=== PATIENT | male | born 1980 | race Caucasian/White ===

== ENCOUNTER 2025-02-05 20:33 | Observation (INO) | payer BC, SELFPAY ==
--- OUTSIDE RECORDS SUMMARY | 2013-08-11 16:02 | XMS_ITS | Continuity of Care Document ---
Author Organization [facility] Address [address] [place] [address] Phone Care Team Providers Care Director Of Group Counseling Program Name Role Phone Wilfredo Rockwell MD Unavailable Unavailable Medications Medication Instructions Dosage Effective Dates (start - stop) Status Comments omeprazole 20 mg tablet,delayed release 1 tablet by mouth 1 hour before a meal once daily - Active diphenhydramine 25 mg tablet take 1 - 2 Tablet by oral route every 4 - 6 hours as needed 25 MG - Active triamcinolone acetonide 55 mcg nasal spray aerosol spray 2 spray by intranasal route every day in each nostril - Active Advance Directives Directive Yes / No Effective Date File Name No Information Encounters Encounter Description Practice Location Reason(s) For Visit Diagnoses Date Provider Providers Copied on Encounter [facility], [address], [place], [place], [id number] , tel: [phone] [facility] No Information 4 Moiz Villalobos. [address] [place] [address], [id number] , [place]. tel: [phone] [facility], [address], [place], [place], [id number] , [place] tel: [phone] [facility] Other specified urticariaGERDChroni c rhinitis 4 Moiz Villalobos. [address] [place] [address], [id number] , . tel: [phone] Referring Provider: Namrata Phillips, [address] [place], [address] . tel:[phone] Family History Family Member Type Diagnosis Age At Onset Sister Problem (finding) Allergies Payers Payer name Insurance type Covered green party ID Authoriza ticasi(s) [facility] OPEN ACCESS I II III CI [id number] Social History Type Description Quantity Date Captured Comments Sex Male Smoking Status No Information Chief Complaint And Reason For Visit No Information Reason For Referral Reason For Referral No Information History Of Present Illness Encounter Date Complaint History Of Prese nt Illness No Information Functional Status Date Functional Assessmen t No Information Instructions Date Instruction Additional Infor mation No Information Assessments Type Assessment Date No Information Patient Care Teams Name Effective Dates (start - stop) Status Members No Information
[2025-02-05] VITALS (7 sets, daily range): BP systolic 123–139; BP diastolic 84–94; PULSE 63–79; RESP 12–20; TEMP 36.5–36.7; O2SAT 98–100
--- NOTE | ~2025-02-05 | CT_ITS ---
CTA CHEST CLINICAL HISTORY: Chest pain with inspiration . COMPARISON: Chest x-ray one day prior TECHNIQUE: Helical CTA performed from thoracic inlet to upper abdomen IV contrast information not in PACS Coronal, sagittal reformats. Multiplanar MIPS CT images acquired with automatic exposure control for dose reduction DLP: 466 mGy-cm FINDINGS: Mild respiratory motion artifact. Pulmonary arteries: No PE identified. Thoracic Aorta: No dissection or aneurysm. Heart/pericardium: Upper limit of normal in size. Coronary artery calcifications. RV/LV ratio: Normal. Lungs/Pleura: Clear. Tracheobronchial tree: Patent. Nodes: No enlarged nodes. Right hilar calcifications. Bones: No acute bony abnormality. Soft tissues: Unremarkable. Visualized upper abdomen: Hepatomegaly, with steatosis. IMPRESSION: 1. No PE or other acute cardiopulmonary findings. Reviewed, dictated and finalized at location R.
--- NOTE | ~2025-02-05 | CT_ITS ---
EXAMINATION: CT brain wo con DATE: 02/07/2025 15:09 INDICATION: Vision changes TECHNIQUE: Computed tomography (CT) of the head was performed without intravenous contrast. Sagittal and coronal reconstructions were performed. The mA was adjusted according to patient size. Iterative reconstruction technique was employed. The dose-length product was 605.33 mGy-cm. COMPARISON: None FINDINGS: No acute intracranial hemorrhage, acute infarction or abnormal extra axial fluid collection. Ventricles are normal and symmetric. No mass/mass effect. Because retention cyst in the left maxillary sinus and mild mucosal thickening the left sphenoid and posterior left ethmoid sinus. The orbits and mastoid air cells are normal. IMPRESSION: 1. Normal brain. No acute intracranial process. Reviewed, dictated and finalized at location A.
--- NOTE | ~2025-02-05 | CT_ITS ---
EXAMINATION: CTA BRAIN/CAROTID DATE: 02/07/2025 15:12 INDICATION: Vision changes TECHNIQUE: Computed tomographic angiography (CTA) of the head and neck was performed with 100 mL Omnipaque-350 intravenous contrast. Multiplanar reconstructions and maximum intensity projection 3D-reconstructions of the carotid arteries and of the intracranial arteries were created by the technologist on a separate workstation. Automated exposure control and iterative reconstruction technique were employed.The dose-length product was 1184.06 mGy-cm. COMPARISON: Head CT dated 02/07/2025 FINDINGS: Intracranial arteries Right vertebral artery is dominant. There is no hemodynamically significant stenosis in the vertebral, basilar and internal carotid arteries. Both A1 and P1 segments are patent. There are also patent tiny bilateral posterior communicating arteries. There are no aneurysms identified. Cerebral arterial arborization appears symmetric. No abnormally enhancing brain lesions. Carotid arteries: The aortic arch and the great vessels arising from the arch are normal in caliber with no dissection or hemodynamically significant stenosis. There is no evident atherosclerotic plaque with 0% stenosis of the right and left carotid bulbs relative to normal distal artery lumen diameter (NASCET criteria). Visualized upper lungs are clear. Cervical soft tissues are unremarkable. Mild cervical spondylosis. IMPRESSION: 1. No evident atherosclerotic plaque with 0% stenosis of the right and left carotid bulbs relative to normal distal artery lumen diameter (NASCET criteria). 2. Unremarkable cerebral CT angiogram with no evident thrombosis, hemodynamically significant stenosis or aneurysm. Reviewed, dictated and finalized at location A. IMPRESSION: 1. No evident atherosclerotic plaque with 0% stenosis of the right and left car otid bulbs relative to normal distal artery lumen diameter (NASCET criteria). 2. Unremarkable cerebral CT angiogram with no evident thrombosis, hemodynamical ly significant stenosis or aneurysm.
--- NOTE | ~2025-02-05 | XR_ITS ---
Examination: XR chest 2V Clinical History: chest pain Comparison: None Technique: PA and Lateral Findings: Cardiomediastinal silhouette normal size and configuration. Lungs clear. No acute bony abnormality. IMPRESSION: 1. No acute cardiopulmonary findings. Reviewed, dictated and finalized at location R.
--- NOTE | ~2025-02-05 | MR_ITS ---
EXAMINATION: MR brain/brain stem wo con DATE: 02/08/2025 10:06 INDICATION: Stroke. TECHNIQUE: Magnetic resonance imaging (MRI) of the brain and brainstem was performed without intravenous contrast. COMPARISON: Head CT 02/07/2025 FINDINGS: There is no intracranial hemorrhage, acute infarction, or abnormal intracranial mass lesion. The ventricles are normal in size. There is mild mucosal thickening in the paranasal sinuses. The orbits are normal. There is a trace left mastoid effusion. IMPRESSION: 1. Normal brain. Reviewed, dictated and finalized at location E. IMPRESSION: 1. Normal brain.
--- NOTE | ~2025-02-05 | NM_ITS ---
EXAMINATION: NM daryn stress w perfusion DATE: 02/07/2025 10:13 INDICATION: Recent angioplasty and recurrent chest pain TECHNIQUE: Rest images were obtained following intravenous administration of 10.7 mCi Tc99m tetrofosmin (Myoview). The patient was infused intravenously with Lexiscan (Regadenoson). Then, 35.0 mCi Tc99m tetrofosmin (Myoview) was administered intravenously, and stress images were obtained initially in the supine position with repeat post stress imaging obtained in the prone position. Data was reconstructed into short axis and horizontal and vertical long axis SPECT images. Gated SPECT images were also obtained. COMPARISON: None. FINDINGS: There is a small region of mild decreased activity at the apical lateral segment on the non gated stress imaging which is not appreciated on the gated post stress imaging. The perfusion defect appears to shift in position when comparing the post stress imaging obtained in the supine and prone position which favors artifact. There is no definite reversible or fixed perfusion abnormality to suggest ischemia or infarction. There is normal left ventricular chamber size, wall motion and ejection fraction. There is borderline decreased left ventricular ejection fraction measuring 46%. IMPRESSION: 1. Small focus of mild decreased activity at the apical lateral segment on the non gated post stress imaging which changes slightly in position on the post stress imaging obtained in the prone position and which appears to normalize on the gated post stress imaging which would favor artifact over ischemia. No other definitive myocardial perfusion defects at rest and during stress to suggest ischemia or infarct.. 2. Borderline left ventricular ejection fraction measuring 46%. Reviewed, dictated and finalized at location A. IMPRESSION: 1. Small focus of mild decreased activity at the apical lateral segment on the non gated post stress imaging which changes slightly in position on the post st ress imaging obtained in the prone position and which appears to normalize on t he gated post stress imaging which would favor artifact over ischemia. No other definitive myocardial perfusion defects at rest and during stress to suggest i schemia or infarct.. 2. Borderline left ventricular ejection fraction measuring 46%.
--- NOTE | 2025-02-05 20:37 | ECG_ITS ---
Test Date: 2025-02-05 20:42:38 Measurements Intervals [place] Rate: 76 P: 23 MT: 173 QRS: -38 QRSD: 105 T: 28 QT: 371 QTc: 419 Interpretive Statements SINUS RHYTHM LEFT AXIS DEVIATION INCOMPLETE RIGHT BUNDLE BRANCH BLOCK VOLTAGE CRITERIA FOR LVH CANNOT R/O SEPTAL INFARCT, AGE INDETERMINATE BASELINE ARTIFACT- I, II, III, AVR, AVL, AVF ABNORMAL ECG No previous ECG available for comparison Electronically Signed On 02-06-2025 08:15:14 CDT by Sandeep Liang D.O.
[2025-02-05 20:56] LABS: Hematocrit 41.4 % (42.0-52.0); Hemoglobin 14.1 g/dL (14.0-18.0); Immature Granulocyte Percent A 0.5 % (0-0.5); Lymphocytes Absolute Auto 1.88 K/mm3 (0.9-3.2); Mean Corpuscular HGB Conc 34.1 g/dl (32-36); Mean Corpuscular Hemoglobin 28.6 pg (26-34); Mean Corpuscular Volume 84.0 fl (80-100); Nucleated Red Blood Cells Absolute Auto 0.000 K/mm3 (0.0-0.012); Nucleated Red Blood Cells Perc 0.0 % (0.0-0.2); Platelet Count Result 386 k/mm3 (150-375); Red Blood Count 4.93 M/mm3 (4.6-6.20); White Blood Count 6.3 K/mm3 (4.5-10.0)
[2025-02-05 21:08] LABS: INR 1.1; Prothrombin Time 14.3 Seconds (11.1-14.7)
[2025-02-05 21:09] LABS: Partial Thromboplastin Time 27.2 Seconds (22.3-36.8)
[2025-02-05 21:12] LABS: Alanine Aminotransferase 43 U/L (6-50); Albumin Level 4.1 g/dL (3.5-5.1); Alkaline Phosphatase 63 U/L (38-126); Anion Gap 4 mmol/L (4-12); Aspartate Amino Transferase 31 U/L (17-59); Bilirubin,Total 0.4 mg/dL (0.2-1.3); Blood Urea Nitrogen 14 mg/dL (9-20); Calcium 9.0 mg/dL (8.4-10.2); Carbon Dioxide 30 mmol/L (22-30); Chloride 101 mmol/L (98-107); Estimated CRCL calculation 96 ml/min; Estimated Glomerular Filt Rate > 60; Glucose 109 mg/dL (65-110); Lipase 161 U/L (23-300); Potassium 4.0 mmol/L (3.4-5.0); Sodium 135 mmol/L (137-145); Total Protein 6.9 g/dL (6.3-8.2)
[2025-02-05 21:22] LABS: Troponin I 0.121 ng/mL (0.000-0.034)
--- NOTE | 2025-02-05 21:22 | PC.NURSE ---
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
--- OUTSIDE RECORDS SUMMARY | 2025-02-05 21:33 | XMS_ITS | Encounter Summary ---
Author Organization [facility] Address [address] [place] [address] Care Team Providers Care Online Advertising Manager Name Role Phone Kt Sandy MD Primary Care Provider [phone] Monica Quinones MD Unavailable [phone] Encounter Details Date Type Department Care Team (Late st Contact Info) Description 01/24/2025 Hospital Encounter [facility] ADMIT [address] [place] [address] Social History Tobacco Use Types Packs/Day Years Used Date Smoking Tobacco: Former Cigarettes Q uit: 2008 Smokeless Tobacco: Former Comments:currently chew rich chente gum Alcohol Use Standard Drinks/Week Comments Yes 0 (1 standard drink = 0.6 oz pur e alcohol) 2x/week AUDIT-C Answer Date Recorded Q1: How often do you have a drink containing alc ohol? 2-4 times a month 11/24/2024 Q2: How many drinks containi ng alcohol do you have on a typical day when you are drinking? 1 or 2 11/24/2024 Q3: How often do you have si x or more drinks on one occasion? Less than monthly 11/24/2024 Social Connection and Isolation Panel Answer Date Recorded In a typical week, how many times do you talk on the phone with family, friends, or neighbors? More than three times a week 01/26/2025 How often do you get togethe r with friends or relatives? More than three times a week 01/26/2025 How often do you attend chur or religion services? Never 01/26/2025 Do you belong to any clubs o r organizations such as taoism groups, unions, fraternal or athletic groups, or school groups? No 01/26/2025 How often do you attend meet ings of the clubs or organizations you belong to? Never 01/26/2025 Are you , , di vorced, , never , or living with a partner? 01/26/2025 Overall Financial Resource Strain (CARDIA) Answe r Date Recorded How hard is it for you to pa y for the very basics like food, housing, medical care, and heating? Not hard at all 01/26/2025 Hunger Vital Sign Answer Date Recorded Within the past 12 months, y ou worried that your food would run out before you got the money to buy more. Never true 01/27/20 25 Within the past 12 months, t he food you bought just didn't last and you didn't have money to get more. Never true 01/26/2025 PRAPARE - Transportation Answer Date Re corded In the past 12 months, has l ack of transportation kept you from medical appointments or from getting medications? No 01/04 In the past 12 months, has l ack of transportation kept you from meetings, work, or from getting things needed for daily living? No 01/26/2025 Housing Stability Vital Sign Answer Bruce e Recorded In the last 12 months, was t here a time when you were not able to pay the mortgage or rent on time? No 01/26/2025 In the past 12 months, how m any times have you moved where you were living? 0 01/26/2025 At any time in the past 12 m [facility], were you homeless or living in a intermediate (including now)? No 01/26/2025 [facility] Utilities Answer Date Recorded In the past 12 months has th e electric, gas, oil, or water company threatened to shut off services in your home? No 01/26/2025 Personal Safety Answer Date Recorded Have you ever been in or are you currently in a harmful physical or emotional relationship or is someone making you feel afraid or unsafe? 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
--- OUTSIDE RECORDS SUMMARY | 2025-02-05 21:33 | XMS_ITS | Clinical Summary ---
Author Organization [facility] Address [address] [place] [address] Care Team Providers Care Sweatband Perforator Name Role Phone Unavailable Primary Care Provider Unavailabl e Social History Tobacco Use Types Packs/Day Years Used Date Smoking Tobacco: Never Assessed Sex and Gender Information Value Date Recorded Sex Assigned at Not on file Legal Sex Male 9:18 PM CDT Gender Identity Not on file Sexual Orientation Not on file Plan of Treatment Not on file
--- OUTSIDE RECORDS SUMMARY | 2025-02-05 21:33 | XMS_ITS | Clinical Summary ---
Author Organization [facility] Address [facility] [place] [address] Care Team Providers Care Lead Android Developer Name Role Phone Kt Sandy MD Primary Care Provider [phone] Gerardo Verma MD Unavailable Unavailabl e Allergies Active Allergy Reactions Criticality Noted Date Comments Prednisone Hives,Other (see comment) 02/03/2014 A fib Vancomycin Itching 09/11/2016 Medications vitamin D3 (CHOLECALCIFERO L) 25 mcg tablet Take 1 tablet (1,000 Units total) by mouth. Active vitamin C (ASCORBIC ACID) 1000 MG tablet Take 1 tablet (1,000 mg total) by mouth. Active B Complex Vitamins (VITAMIN B COMPLEX OR) Take 1 tablet by mouth. Active Zinc 22.5 MG Tab Active magnesium oxide (MAG-OX) 400 (240 Mg) MG tablet Take 1 tablet (400 mg total) by mouth daily. 90 tablet 3 07/30/2023 Active famotidine (PEPCID) 20 MG tablet Take 1 tablet (20 mg total) by mouth as needed for Heartburn. Active pantoprazole EC (PROTONIX) 20 MG tablet Take 2 tablets (40 mg total) by mouth daily. 08/25/2023 Active Active Problems Problem Noted Date Diagnosed Date Palpitation 07/30/2023 Family History Relation Status Comments Father Alive Maternal Grandfather Maternal Grandmother Mother Paternal Grandfather Paternal Grandmother Sister Alive Social History Tobacco Use Types Packs/Day Years Used Date Smoking Tobacco: Former Cigarettes Q uit: 2004 Smokeless Tobacco: Never Tobacco Cessation:Counseling Given: Not Answered Alcohol Use Standard Drinks/Week Comments Yes 0 (1 standard drink = 0.6 oz pur e alcohol) 6-10 every other weekend Sex and Gender Information Value Date Recorded Sex Assigned at Male 07/14/2024 2:28 PM CDT Legal Sex Male 11:16 PM CDT Gender Identity Not on file Sexual Orientation Not on file Last Filed Vital Signs Vital Sign Reading Time Taken Comments Blood Pressure 131/87 08/26/2024 3:37 PM CDT Pulse 85 08/26/2024 3:37 PM CDT Temperature - - Respiratory Rate 18 08/26/2024 3:37 PM CDT Oxygen Saturation 96% 08/26/2024 3:37 PM CDT Inhaled Oxygen Concentration - - Weight 99.7 kg (219 lb 12.8 oz) 08/26/2024 3:37 PM CDT Height 177.8 cm (5' 10) 08/26/2024 3:37 PM CDT Body Mass Index 31.54 08/26/2024 3:37 PM CDT Plan of Treatment Health Maintenance Due Date Last Done Comments Colorectal Cancer Screening Colonoscopy (10 Years) 1978 Annual Physical 1981 Hepatitis C 1996 Hepatitis B Vaccines (1 of 3 - 19+ 3-dose series) 1997 COVID-19 Vaccine (2023-2 5 season) 2025 Influenza Adult (#1) 2025 DTaP, Tdap and Td Vaccines ( 2 - Td or Tdap) 01/30/2032 01/29/2022 Meningococcal B Vaccine Aged Out No l onger eligible based on patient's age to complete this topic Meningococcal Vaccine Aged Out No carolyn swati eligible based on patient's age to complete this topic Pneumococcal Vaccine: Pediat rics (0 to 5 Years) and At-Risk Patients (6 to 49 Years) Aged Out No longer eligi ble based on patient's age to complete this topic RSV Immunizations Under 20 Months Aged Out No longer eligible based on patient's age to complete this topic Insurance [facility] Care Teams Lead Android Developer Relationship Specialty Start Date End Date Kt Sandy MD [address] [place] [address] PCP - General FAMILY PRACTICE 07/10/23 Gerardo Verma MD [facility] [place] [address] [place] Stagecraft Professor CARDIOVASCULAR DISEASE 07/10/23
--- OUTSIDE RECORDS SUMMARY | 2025-02-05 21:34 | XMS_ITS | Clinical Summary ---
Author Organization [facility] Address [address] [place] [address] Care Team Providers Care Warehouse Man Name Role Phone Namrata Phillips DO Unavailable [phone] Kt Sandy MD Primary Care Provider [phone] Source Comments [facility],non-owned Affiliates and Associated Physician Practices is amultiple site organization consisting of ambulatory clinics and hospital sitesin [place], [place], [place]. This disclosure is being madepursuant to the Care Everywhere program and may not contain all information available regarding this patient. Last updated 18.[facility] Allergies Active Allergy Reactions Criticality Noted Date Comments Nitroglycerin Other High 01/24/2025 Hypotension, Diaphoretic Prednisone Other 02/03/2014 A fib Vancomycin Itching 09/11/2016 Medications * Be aware that medications may not be up to date on this document. Alwaysverify current medications with the patient. pantoprazole EC (Protonix) 40 MG tablet Take 1 (one) tablet by mouth once daily Active morphine 4 MG/ML injectionIndica tions:Refractor y angina pectoris 0.5 mL by Intravenous route every 2 hours as needed 5 Active aspirin (Aspirin) 81 MG chew tablet Take 1 (one) tablet by mouth once daily (chew and swallow) 5 Active isosorbide mononitrate CR 24hr (Imdur) 60 MG tablet Take 1 (one) tablet by mouth once daily 5 Active Nitroglycerin in D5W (nitroGLYCERIN 50 mg in 250 mL) 200-5 MCG/ML-% infusion 0-100 mcg/min by Intravenous route continuous 5 Active ALPRAZolam (Xanax) 0.5 MG tablet Take 1 (one) tablet by mouth 3 times daily 5 Active Heparin, Porcine, in NaCl (heparin 25,000 units in 250 mL, 100 units/mL, in 0.45% NaCl) infusion 0-3,960 Units/hr by Intravenous route continuous 5 Active ondansetron (Zofran) 2 MG/ML injection 4 (four) mg by Intravenous route every 4 hours as needed for Nausea/Vomiting 5 Active atorvastatin (Lipitor) 80 MG tablet Take 1 (one) tablet by mouth at bedtime 5 Active metoprolol succinate XL 24hr (Toprol XL) 25 MG tablet Take 1 (one) tablet by mouth once daily 5 Active amLODIPine (Norvasc) 5 MG tablet Take 1 (one) tablet by mouth once daily 5 Active prasugrel (Effient) 10 MG tablet Take 1 (one) tablet by mouth once daily 5 Active vitamin C (Ascorbic Acid) 1000 MG tablet Take 1 (one) tablet by mouth once daily 025 Discontin ued(List Clean-Up) vitamin D3 (Cholecalcifero l) 25 MCG (1000 UNITS) tablet Take 1 (one) tablet by mouth once daily 025 Discontin ued(List Clean-Up) B Complex Vitamins (vitamin B complex) tablet Take 1 (one) tablet by mouth once daily 025 Discontin ued(List Clean-Up) cetirizine (ZyrTEC ALLERGY) 10 MG tablet Take 1 (one) tablet by mouth at bedtime 4 025 Discontin ued(List Clean-Up) calcium carbonate (Tums) 500 MG chew tablet Take 2 (two) tablets by mouth every 2 hours as needed for Heartburn 025 Discontin ued(List Clean-Up) zinc sulfate (Zincate) 220 (50 ZN) MG capsule Take 1 (one) capsule by mouth once daily 025 Discontin ued(List Clean-Up) budesonide (Pulmicort) 0.5 MG/2ML nebulizer suspension Take 4 mL by mouth once daily as needed Mix with 10 packets of splenda and drink 025 Discontin ued(List Clean-Up) magnesium 30 MG tablet Take 4 (four) tablets by mouth at bedtime 025 Discontin ued(List Clean-Up) diazePAM (Valium) 5 MG tablet Take 1 (one) tablet by mouth 3 times daily as needed for Spasms 9 tablet 5 025 Discontin ued(List Clean-Up) nystatin (Mycostatin) 358908 UNIT/ML suspensionIndic ations:Thrush, oral Take 5 mL by mouth [address] one-half of the dose in each side of mouth and retain in mouth as long as possible before swallowing. Continue treatment for at least 48 hours after perioral symptoms disappear and cultures demonstrate eradication 473 mL 5 025 Discontin ued(List Clean-Up) Pseudoeph-Doxyl slxse-QB-YTHL (NYQUIL PO) Take 20 mL by mouth nightly as needed 025 Discontin ued(Clini susan Decision) prasugrel (Effient) 10 MG tablet Take 1 (one) tablet by mouth once daily 30 tablet 5 025 Discontin ued(Clini susan Decision) Active Problems Problem Noted Date Diagnosed Date NSTEMI (non-ST elevated myocardial infarction) 0 01/20/2025 Cellulitis of right upper extremity 09/11/2016 Chest pain 07/01/2013 Sinusitis, acute 05/06/2013 Encounters Date Type Department Care Team Description 01/23/2025 11:45 AM CDT - 01/23/2025 1:00 PM CDT 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[address] [place] [address] Libertad Nails MD Left Heart Cath 01/21/2025 2:25 PM CDT - 01/25/2025 5:55 PM CDT Hospital Encounter [facility] [address] [place] [address] Kathy Duran MD Wolde, Hailemariam, DO Gonzalez, Darsham Y, MD Family Medicine Discharge Disposition: Inpatient Hospital 01/20/2025 5:58 PM CDT - 01/21/2025 1:41 PM CDT Emergency ER at [facility] [address] [place] [address] Lucy English MD Fox, Faron, MD NSTEMI (non-ST elevated myocardial infarction) (HCC) (Primary Dx); Other chest pain; Hypertension, unspecified type Discharge Disposition: Inpatient Hospital 01/20/2025 Travel 12/27/2024 3:15 PM CDT Office Visit [facility] [address] [place] [phone] Thrush, oral (Primary Dx) 12/27/2024 Travel from Last 3 Months Family History Medical History Relation Name Comments Cancer - Prostate Father Heart Disease Maternal Grandfather Hypertension Maternal Grandfather Diabetes Paternal Grandfather Heart Disease Paternal Grandfather Hypertension Paternal Grandfather Stroke Paternal Grandfather Relation Name Status Comments Father Maternal Grandfather Paternal Grandfather Social History Tobacco Use Types Packs/Day Years Used Date Smoking Tobacco: Former Smokeless Tobacco: Former Chew Quit: 09/12/2013 Tobacco Cessation:Ready to Q uit: Yes; Counseling Given: Yes Alcohol Use Standard Drinks/Week Comments Yes 3.3 (1 standard drink = 0.6 oz p ure alcohol) occasionally, beer or liquor AUDIT-C Answer Date Recorded Q1: How often do you have a drink containing alcohol? Never 01/21/2025 Q2: How many drinks containi ng alcohol do you have on a typical day when you are drinking? Patient does not drink Q3: How often do you have si x or more drinks on one occasion? Never 01/21/2025 Overall Financial Resource Strain (CARDIA) Answe r Date Recorded How hard is it for you to pa y for the very basics like food, housing, medical care, and heating? Not hard at all 01/21/2025 PHQ-2 Answer Date Recorded Patient Health Questionnaire-2 Score 0 12/27/2024 [facility] [place] [facility] - Occupational Stress Questionnaire Answer Date Recorded Do you feel stress - tense, restless, nervous, or anxious, or unable to sleep at night because your mind is troubled all the time - these days? Not at all 01/21/2025 Hunger Vital Sign Answer Date Recorded Within the past 12 months, y ou worried that your food would run out before you got the money to buy more. Never true 01/22/20 25 Within the past 12 months, t he food you bought just didn't last and you didn't have money to get more. Never true 01/21/2025 PRAPARE - Transportation Answer Date Re corded In the past 12 months, has l ack of transportation kept you from medical appointments or from getting medications? No 01/03 In the past 12 months, has l ack of transportation kept you from meetings, work, or from getting things needed for daily living? No 01/21/2025 Housing Stability Vital Sign Answer Bruce e Recorded In the last 12 months, was t here a time when you were not able to pay the mortgage or rent on time? No 01/21/2025 In the past 12 months, how m any times have you moved where you were living? 0 01/21/2025 At any time in the past 12 m [facility], were you homeless or living in a retirement (including now)? 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 Gender Identity Not on file Sexual Orientation Not on file Last Filed Vital Signs Vital Sign Reading Time Taken Comments Blood Pressure 124/66 01/25/2025 11:27 AM CDT Pulse 91 01/25/2025 11:27 AM CDT Temperature 37.3 C (99.1 F) 01/25/2025 11:27 AM CDT Respiratory Rate 20 01/25/2025 11:27 AM CDT Oxygen Saturation 95% 01/25/2025 11:27 AM CDT Inhaled Oxygen Concentration - - Weight 99 kg (218 lb 4.1 oz) 01/25/2025 3:00 AM CDT Height 177.8 cm (5' 10) 01/24/2025 4:00 PM CDT Body Mass Index 31.32 01/24/2025 4:00 PM CDT Plan of Treatment Health Maintenance Due Date Last Done Comments COLOGUARD (AGES 45-75) - COLON CA SCREENING 1978 COLON MONITORING 1978 COLONOSCOPY - COLON CA SCREENING 1978 CT COLONOGRAPHY - COLON CA SCREENING 1978 Colorectal Cancer Screening 1978 FIT - COLON CA SCREENING 1978 FLEX SIG - COLON CA SCREENING 1978 HIV SCREENING 1993 HEPATITIS C SCREENING 06/01/1996 DTAP/TDAP/TD VACCINES (1 - Tdap) 1997 HEPATITIS B VACCINE (1 of 3 - 19+ 3-dose series) 1997 COVID-19 VACCINE (1 - season) 2025 INFLUENZA VACCINE (#1) 2025 SCREENING FOR DIABETES 01/26/2028 , 01/24/2025, 01/23/2025, Additional history exists ZOSTER VACCINE (1 of 2) 2028 DEPRESSION SCREENING Completed 12/27/2024 HIB VACCINE Aged Out No longer eligi ble based on patient's age to complete this topic HPV VACCINE Aged Out No longer eligi ble based on patient's age to complete this topic MENINGOCOCCAL (Group B) VACCINE SHARED DECISION-MAKING Aged Out No longer eligible based on patient's age to complete this topic MENINGOCOCCAL GROUPS A/C/Y/W VACCINE Aged Out No longer eligible based on patient's age to complete this topic PNEUMOCOCCAL VACCINE Aged Out No long er eligible based on patient's age to complete this topic Medical Devices Implanted Type Area Bricklayer Tender Device Identifier Shelf Expiration Date Model / Serial / Lot Sys Cor Stent Xienceskpt 3.50mm 23mm Rap Implanted:Qty: 1 on 01/23/2025 by Jaun Lafleur MD at [facility] [id number] / [id number] / [id number] Description:LAD Procedures Procedure Name Priority Date/Time Associated Diagnosis Comments CARDIAC RHYTHM STRIP ORDER 01/27/2025 1:05 PM CDT PTT Routine 01/25/2025 3:35 PM CDT RESPIRATORY PANEL WITH SARS-COV-2 BY PCR STAT 01/25/2025 1:26 PM CDT TROPONIN-I HIGH SENSITIVE Timed 01/25/2025 11:25 AM CDT EKG 12-LEAD STAT 01/25/2025 7:20 AM CDT Other chest pain BASIC METABOLIC PANEL (CALCIUM TOTAL) AM Draw 01/25/2025 5:10 AM CDT CBC W AUTO DIFFERENTIAL AM Draw 01/25/2025 5:10 AM CDT TROPONIN-I HIGH SENSITIVE Routine 01/25/2025 5:10 AM CDT EKG 12-LEAD STAT 01/24/2025 10:37 PM CDT Other chest pain EKG 12-LEAD Routine 01/24/2025 10:37 PM CDT NSTEMI (non-ST elevated myocardial infarction) (HCC) TROPONIN-I HIGH SENSITIVE Timed 01/24/2025 8:54 PM CDT TROPONIN-I HIGH SENSITIVE STAT 01/24/2025 5:03 PM CDT CARDIAC EKG ORDER 01/24/2025 3:3 0 PM CDT ECHO COMPLETE Routine 01/24/2025 8:07 AM CDT NSTEMI (non-ST elevated myocardial infarction) (HCC) EKG 12-LEAD STAT 01/24/2025 7:19 AM CDT Refractory angina pectoris EKG 12-LEAD STAT 01/24/2025 5:49 AM CDT NSTEMI (non-ST elevated myocardial infarction) (HCC) TROPONIN-I HIGH SENSITIVE Routine 01/24/2025 4:45 AM CDT BASIC METABOLIC PANEL (CALCIUM TOTAL) AM Draw 01/24/2025 4:45 AM CDT CBC W/O DIFFERENTIAL AM Draw 01/24/2025 4:45 AM CDT TROPONIN-I HIGH SENSITIVE Routine 01/23/2025 8:28 PM CDT TROPONIN-I HIGH SENSITIVE Routine 01/23/2025 4:54 PM CDT EKG 12-LEAD Routine 01/23/2025 3:38 PM CDT Other chest pain GLUCOSE - POINT OF CARE Routine 01/23/2025 3:38 PM CDT EKG 12-LEAD Routine 01/23/2025 3:06 PM CDT NSTEMI (non-ST elevated myocardial infarction) (HCC) EKG 12-LEAD Routine 01/23/2025 1:46 PM CDT NSTEMI (non-ST elevated myocardial infarction) (HCC) ISTAT ACT-C Routine 01/23/2025 1:16 PM CDT CCL CORONARY IVUS Routine 01/23/2025 1:1 1 PM CDT Chest pain, unspecified type CCL PERCUTANEOUS CORONARY INTERVENTION Routine 01/23/2025 1:11 PM CDT Chest pain, unspecified type CCL LEFT HEART CATH Routine 01/23/2025 1 :11 PM CDT Chest pain, unspecified type EKG 12-LEAD Routine 01/23/2025 6:28 AM CDT Unstable angina pectoris (HCC) BASIC METABOLIC PANEL (CALCIUM TOTAL) AM Draw 01/23/2025 5:43 AM CDT B-TYPE NATRIURETIC PEPTIDE AM Draw 01/22/2025 4:34 AM CDT TROPONIN-I HIGH SENSITIVE AM Draw 01/22/2025 4:34 AM CDT BASIC METABOLIC PANEL (CALCIUM TOTAL) AM Draw 01/22/2025 4:34 AM CDT CBC W AUTO DIFFERENTIAL AM Draw 01/22/2025 4:34 AM CDT EKG 12-LEAD Routine 01/21/2025 3:24 PM CDT Chest pain, unspecified type TROPONIN-I HIGH SENSITIVE STAT 01/21/2025 3:20 PM CDT PTT Timed 01/21/2025 3:20 PM CDT PTT Timed 01/21/2025 10:12 AM CDT TROPONIN-I HIGH SENSITIVE STAT 01/21/2025 6:04 AM CDT LIPID PROFILE STAT 01/21/2025 6:04 AM CDT PTT Timed 01/21/2025 3:02 AM CDT PTT STAT 01/20/2025 9:03 PM CDT PT-INR STAT 01/20/2025 9:03 PM CDT DRUG ABUSE URINE SCREEN 10 STAT 01/20/2025 9:03 PM CDT URINALYSIS REFLEX MICROSCOPIC REFLEX CULTURE STAT 01/20/2025 9:03 PM CDT TROPONIN-I HIGH SENSITIVE REFLEX 1HOUR Timed 01/20/2025 7:40 PM CDT XR CHEST 1VW PORTABLE STAT 01/20/2025 6:30 PM CDT Other chest pain D-DIMER STAT 01/20/2025 6:13 PM CDT MAGNESIUM BLOOD STAT 01/20/2025 6:13 PM CDT COMPREHENSIVE METABOLIC PANEL STAT 01/20/2025 6:13 PM CDT CBC W AUTO DIFFERENTIAL STAT 01/20/2025 6:13 PM CDT TROPONIN-I HIGH SENSITIVE BASELINE + 1HR STAT 01/20/2025 6:13 PM CDT EKG 12-LEAD STAT 01/20/2025 6:04 PM CDT Other chest pain from Last 3 Months Results * CARDIAC RHYTHM STRIP ORDER (01/27/2025 1:05 PM CDT) Narrative 01/27/2025 1:05 PM CDT Ordered by an unspecified provider. us Scanned Document CARDIAC SERVICES ORDERABLES [place] Result - Final * PTT (01/25/2025 3:35 PM CDT) Only the most recent of5 resultswithin the time period is included. PTT 28.5 23.0 - 38.4 sec 01/25/2025 4:32 PM CDT [facility] Blood BLOOD SPECIMEN / Unknown Lab Venipuncture / Unknown 01/25/2025 3:35 PM CDT 01/25/2025 3:56 PM CDT us Jun Miller MD LAB - COAGULATION ORDERABL ES Final Result [facility] [address] [place] [id number] * RESPIRATORY PANEL WITH SARS-COV-2 BY PCR (01/25/2025 1:26 PM CDT) Adenovirus PCR Not detected Not detected 01/25/2025 7:28 PM CDT [facility] Coronavirus 229E PCR Not detected Not detected 01/25/2025 7:28 PM CDT [facility] Coronavirus HKU1 PCR Not detected Not detected 01/25/2025 7:28 PM CDT [facility] Coronavirus NL63 PCR Not detected Not detected 01/25/2025 7:28 PM CDT [facility] Coronavirus OC43 PCR Not detected Not detected 01/25/2025 7:28 PM CDT [facility] COVID-19 PCR Not detected Not detected 01/25/2025 7:28 PM CDT [facility] Human Metapneumovirus PCR Not detected Not detected 01/25/2025 7:28 PM CDT [facility] Human Rhinovirus/Enterov irus PCR Not detected Not detected 01/25/2025 7:28 PM CDT [facility] Influenza A PCR Not detected Not detected 01/25/2025 7:28 PM CDT [facility] Influenza B PCR Not detected Not detected 01/25/2025 7:28 PM CDT [facility] Parainfluenza Virus 1 PCR Not detected Not detected 01/25/2025 7:28 PM CDT [facility] Parainfluenza Virus 2 PCR Not detected Not detected 01/25/2025 7:28 PM CDT [facility] Parainfluenza Virus 3 PCR Not detected Not detected 01/25/2025 7:28 PM CDT [facility] Parainfluenza Virus 4 PCR Not detected Not detected 01/25/2025 7:28 PM CDT [facility] Respiratory Syncytial Virus PCR Not detected Not detected 01/25/2025 7:28 PM CDT [facility] Bordetella parapertussis PCR Not detected Not detected 01/25/2025 7:28 PM CDT [facility] Bordetella pertussis PCR Not detected Not detected 01/25/2025 7:28 PM CDT [facility] Chlamydia pneumoniae PCR Not detected Not detected 01/25/2025 7:28 PM CDT [facility] Mycoplasma pneumoniae PCR Not detected Not detected 01/25/2025 7:28 PM CDT [facility] Microbiology SPECIMEN FROM NASOPHARYNGEAL STRUCTURE / Unknown Collection / Unknown 01/25/2025 1:26 PM CDT 01/25/2025 1:27 PM CDT [facility] - 01/25/2025 7:28 PM CDT This nucleic amplification assay has received FDA authorization via the [place] Pathway. Jun Miller MD LAB - MICROBIOLOGY ORDERAB LES Final Result [facility] [address] [place] [address], [facility] * (ABNORMAL) TROPONIN-I HIGH SENSITIVE (01/25/2025 11:25 AM CDT) Only the most recent of10 resultswithin the time period is included. [facility] Troponin I High Sensitive 3,497(HH) <=35 ng/L 01/25/2025 12:43 PM CDT [facility] Blood BLOOD SPECIMEN / Unknown Lab Venipuncture / Unknown 01/25/2025 11:25 AM CDT 01/25/2025 11:44 AM CDT Libertad Nails MD LAB - CHEMISTRY ORDERABLES Fi nal Result [facility] [address] * EKG 12-LEAD (01/25/2025 7:20 AM CDT) Only the most recent of10 resultswithin the time period is included. [facility] Ventricular Rate 84 BPM [facility] Atrial Rate 84 BPM [facility] P-R Interval 158 ms [facility] QRS Duration ms 114 ms [facility] Q-T Interval ms 378 ms [facility] QTC Calculation (Bezet) 446 ms [facility] Calculated P [place] 13 degrees [facility] Calculated R [place] -47 degrees [facility] Calculated T [place] 75 degrees [facility] Interpretation EKG Normal sinus rhythm Left axis deviation Left ventricular hypertrophy by voltage criteria. biphasic T-waves in aVL. Abnormal ECG When compared with ECG of 24-JAN-2025 22:37, No significant change was found Confirmed by MD JOSIAH, [facility] ([id number]) on 02/01/2025 9:27:41 AM [facility] 01/25/2025 7:20 AM CDT 02/01/2025 9:27 AM CDT Libertad Nails MD ECG ORDERABLES Edited Result - Final [place] [facility] * (ABNORMAL) CBC W AUTO DIFFERENTIAL (01/25/2025 5:10 AM CDT) Only the most recent of3 resultswithin the time period is included. WBC 10.9(H) 4.0 - 10.7 x10E9/L 01/25/2025 5:48 AM CDT [facility] RBC Count 4.63 4.30 - 5.80 x10E12/L 01/25/2025 5:48 AM CDT [facility] Hemoglobin 14.0 13.3 - 17.5 g/dL 01/25/2025 5:48 AM CDT [facility] Hematocrit 39.9 38.7 - 51.1 % 01/25/2025 5:48 AM CDT [facility] MCV 86.2 80.0 - 98.0 fL 01/25/2025 5:48 AM CDT [facility] MCH 30.2 26.7 - 33.6 pg 01/25/2025 5:48 AM CDT [facility] MCHC 35.1 31.7 - 36.3 g/dL 01/25/2025 5:48 AM CDT [facility] RDW-CV 12.0 11.3 - 14.8 % 01/25/2025 5:48 AM CDT [facility] Platelet Count 215 150 - 420 x10E9/L 01/25/2025 5:48 AM CDT [facility] MPV 9.9 7.8 - 11.4 fL 01/25/2025 5:48 AM CDT [facility] Neutrophil % 74.6(H) 41.0 - 74.0 % 01/25/2025 5:48 AM CDT [facility] Lymphocyte % 14.3(L) 17.0 - 47.0 % 01/25/2025 5:48 AM CDT [facility] Monocyte % 9.5 3.0 - 11.0 % 01/25/2025 5:48 AM CDT [facility] Eosinophil % 1.0 0.0 - 7.0 % 01/25/2025 5:48 AM CDT [facility] Basophil % 0.2 0.0 - 1.6 % 01/25/2025 5:48 AM CDT [facility] Immature Granulocytes % 0.4 0.0 - 1.0 % 01/25/2025 5:48 AM CDT [facility] Neutrophil Absolute 8.17(H) 1.60 - 7.50 x10E9/L 01/25/2025 5:48 AM CDT [facility] Lymphocyte Absolute 1.56 1.00 - 4.40 x10E9/L 01/25/2025 5:48 AM CDT [facility] Monocyte Absolute 1.04(H) 0.15 - 1.00 x10E9/L 01/25/2025 5:48 AM CDT [facility] Eosinophil Absolute 0.11 0.00 - 0.60 x10E9/L 01/25/2025 5:48 AM CDT [facility] Basophil Absolute 0.02 0.00 - 0.13 x10E9/L 01/25/2025 5:48 AM CDT [facility] Blood BLOOD SPECIMEN / Unknown Lab Venipuncture / Unknown 01/25/2025 5:10 AM CDT 01/25/2025 5:44 AM CDT Sabi Corona DO LAB - HEMATOLOGY ORDERABLES Final Result [facility] [address] [place] [address], [facility] * BASIC METABOLIC PANEL (CALCIUM TOTAL) (01/25/2025 5:10 AM CDT) Only the most recent of4 resultswithin the time period is included. Glucose 112 70 - 125 mg/dL 01/25/2025 6:09 AM CDT [facility] Sodium 139 136 - 145 mmol/L 01/25/2025 6:09 AM CDT [facility] Potassium 3.9 3.4 - 5.1 mmol/L 01/25/2025 6:09 AM CDT [facility] Chloride 106 98 - 107 mmol/L 01/25/2025 6:09 AM CDT [facility] CO2 22 22 - 29 mmol/L 01/25/2025 6:09 AM CDT [facility] Calcium 8.66 8.4 - 10.2 mg/dL 01/25/2025 6:09 AM CDT [facility] Anion Gap 11 6 - 16 mmol/L 01/25/2025 6:09 AM CDT [facility] BUN 10.2 8.4 - 25.7 mg/dL 01/25/2025 6:09 AM CDT [facility] Creatinine 1.02 0.72 - 1.25 mg/dL 01/25/2025 6:09 AM CDT [facility] eGFR >90 >90 mL/min/1.7 3m2 01/25/2025 6:09 AM CDT [facility] Comment:Estimated Glomerular Filtration Rate (eGFR) calculated using the CKD-EPI Creatinine Equation (2020), per the National Kidney Foundation and [place] [employer]ph[employer] recommendations. Blood BLOOD SPECIMEN / Unknown Lab Venipuncture / Unknown 01/25/2025 5:10 AM CDT 01/25/2025 5:45 AM CDT Sabi Corona DO LAB - CHEMISTRY ORDERABLES Final Result [facility] [address] * CARDIAC EKG ORDER (01/24/2025 3:30 PM CDT) Narrative 01/24/2025 3:30 PM CDT Ordered by an unspecified provider. us Scanned Document CARDIAC SERVICES ORDERABLES Fin al Result * ECHO COMPLETE (01/24/2025 8:07 AM CDT) LV A4C EF 40.936 % [facility] CV FUJ I PACS LV biplane EF 45.641 % [facility] CV FUJI PACS LA vol BP 40.3 ml [facility] CV FUJ I PACS LA size 2.8 cm [facility] CV FUJ I PACS LA vol index 0.019 l/m [facility] CV FUJI PACS AV pk braeden 148 cm/s SSM CV FUJ I PACS AV pk grad 9 mmHg SSM CV FU JI PACS AV area pk braeden 2.855 cm SSM CV FUJI PACS Ascending aorta 3.2 cm SSM CV FUJI PACS MV A pk braeden 88.3 cm/s SSM CV F UJI PACS MV E pk braeden 101 cm/s SSM CV F UJI PACS TR pk braeden 248 cm/s SSM CV FUJ I PACS LV EDV A2C 122 ml SSM CV FU JI PACS LV EDV A4C 171 ml SSM CV FU JI PACS LV ESV A2C 63.9 ml SSM CV FU JI PACS LV ESV A4C 101 ml SSM CV FU JI PACS IVSd 2D 0.8 cm SSM CV FUJ I PACS LVIDd 5.1 cm SSM CV FUJ I PACS LVIDs 4.3 cm SSM CV FUJ I PACS LVOT diam 2.1 cm SSM CV FUJ I PACS LVOT pk braeden 122 cm/s SSM CV F UJI PACS LVOT pk grad 6 mmHg SSM CV FUJI PACS LVPWd 0.8 cm SSM CV FUJ I PACS MV E' lateral braeden 7.83 cm/s SSM CV FUJI PACS LV A2C EF 47.623 % SSM CV FUJ I PACS IVC Diam Expiration 2 cm SSM CV FUJI PACS Myocardial strain charge 2 unitless SSM CV FUJI PACS Anatomical Region Laterality Modality Ultrasound 01/24/2025 7:47 AM CDT Narrative 01/25/2025 11:19 PM CDT Summary * Left ventricle is normal in size, with Overall well-preserved LV systolic function. Mild basal septal hypokinesis. LVEF 55-60% range. Normal diastolic function. * Right ventricle is normal in size with normal systolic function. * The left atrium is normal in size. * The right atrium is normal in size. * Aortic valve is trileaflet with no stenosis, and no regurgitation. * Mitral valve is normal, with no stenosis, and trace regurgitation. * Tricuspid valve is normal, with no stenosis, and trace regurgitation. * The pulmonary artery systolic pressure is normal, 28 mmHg. * Pericardium is normal in appearance with no evidence for significant pericardial effusion. Patient Info Name: Ascencion Alexandre Age: 44 years : 1980 Gender: Male Ht: 70 in Wt: 207 lb BSA: 2.18 m2 HR: 78 bpm BP: 156 / 97 mmHg Exam Date: 01/24/2025 7:47 AM Patient Status: I/P Study Site: [facility] Primary Location: [facility] EStudy Info Exam Type: ECHO COMPLETE Indications I21.4 - NSTEMI (non-ST elevated myocardial infarction) (HCC) Procedure(s) * A complete 2D, color Doppler, and spectral Doppler transthoracic echocardiogram was performed. Staff Referring Physician: Libertad Nails Ordering Provider: Libertad Nails Attending Physician: Libertad Nails Supervisor Photostat: Jeri Kern Left Ventricle Left ventricle is normal in size, with Overall well-preserved LV systolic function. Mild basal septal hypokinesis. LVEF 55-60% range. Normal diastolic function. Right Ventricle Right ventricle is normal in size with normal systolic function. Left Atrium The left atrium is normal in size. Right Atrium The right atrium is normal in size. Atrial Septum No patent ovale evident (PFO) by 2D and color Doppler imaging. Aortic Valve Aortic valve is trileaflet with no stenosis, and no regurgitation. Pulmonic Valve Pulmonic valve is normal, with no stenosis, and no regurgitation. Mitral Valve Mitral valve is normal, with no stenosis, and trace regurgitation. Tricuspid Valve Tricuspid valve is normal, with no stenosis, and trace regurgitation. The pulmonary artery systolic pressure is normal, 28 mmHg. Inferior Vena Cava Normal inferior vena cava with < 50% collapse upon inspiration consistent with normal right atrial pressure, 3 mmHg. Pulmonary Veins Normal flow patterns noted in the pulmonary veins. Pericardium/Pleural Pericardium is normal in appearance with no evidence for significant pericardial effusion. Aorta The aortic root at the sinus of Valsalva is normal in size. The ascending aorta is normal in size. Measurements Left Ventricular Outflow Tract Name Value Normal LVOT 2D LVOT Diameter 2.1 cm LVOT Area 3.5 cm2 LVOT Doppler LVOT Peak Velocity 1.2 m/s LVOT Peak Gradient 6 mmHg Mitral Valve Name Value Normal MV Doppler MV PHT 51 ms MV Area (PHT) 4.31 cm2 4.00-5.00 MV Diastolic Function MV E Peak Velocity 1.0 m/sec MV A Peak Velocity 0.9 m/sec MV E/A 1.1 MV Decel Time (PW) 173 ms MV Annular TDI MV Septal e' Velocity 7 cm/s >=8 MV E/e' (Septal) 14 <=8 MV Lateral e' Velocity 8 cm/s >=10 MV E/e' (Lateral) 13 <=8 MV e' Average 8 cm/s MV E/e' (Average) 13 Tricuspid Valve Name Value Normal TV Regurgitation Doppler TR Peak Velocity 2.5 m/s TR Peak Gradient 25 mmHg Estimated PAP/RSVP RA Pressure 3 mmHg <=5 PA Systolic Pressure 28 mmHg <35 RV Systolic Pressure 28 mmHg <36 Aorta Name Value Normal Ascending Aorta Ao Root Diameter (2D) 3.5 cm Ao Root Diam Index (2D) 1.6 cm/m2 Asc Ao Diameter 3.2 cm 2.2-3.8 Asc Ao Diameter Index 1.5 cm/m2 1.1-1.9 Venous Name Value Normal IVC/SVC IVC Diameter 2.0 cm <=2.1 IVC Diameter (Exp MM) 2.0 cm <=2.1 Aortic Valve Name Value Normal AV Doppler AV Peak Velocity 1.48 m/s AV Peak Gradient 9 mmHg AV Area (Cont Eq Braeden) 2.86 cm2 AV DI (Braeden) 0.82 AV Regurgitation 2D LVOT Area 3.46 cm2 Ventricles Name Value Normal LV Dimensions 2D/MM IVS Diastolic Thickness (2D) 0.8 cm 0.6-1.0 LVID Diastole (2D) 5.1 cm 4.2-5.8 LVPW Diastolic Thickness (2D) 0.8 cm 0.6-1.0 LVID Systole (2D) 4.3 cm 2.5-4.0 LV Mass (2D Cubed) 140 g 88-224 LV Mass Index (2D Cubed) 65 g/m2 49-115 Relative Wall Thickness (2D) 0.31 <=0.42 LV Fractional Shortening/Ejection Fraction 2D/MM LV Fractional Shortening (2D) 16 % 25-43 LV EF (2D Teicholz) 33 % 52-72 LV Diastolic Volume (4C MOD) 171 ml LV EF (4C MOD) 41 % LV Diastolic Volume (2C MOD) 122 ml LV EF (2C MOD) 48 % LV Diastolic Volume (BP MOD) 156 ml 62-150 LV Diastolic Volume Index (BP MOD) 72 ml/m2 34-74 LV Systolic Volume (BP MOD) 85 ml 21-61 LV Systolic Volume Index (BP MOD) 39 ml/m2 11-31 LV EF (BP MOD) 46 % 52-72 LV Diastolic Length (4C) 8.4 cm LV Systolic Length (4C) 7.2 cm LV Stroke Volume (4C MOD) 70 ml Atria Name Value Normal LA Dimensions LA Dimension (2D) 2.8 cm 3.0-4.1 LA Dimen Index (2D) 1.3 cm/m2 LA Volume (BP MOD) 40 ml LA Volume Index (BP MOD) 19 ml/m2 16-34 Report Signatures Finalized by Libertad Nails on 01/25/2025 11:19 PM Procedure Note Libertad Nails MD - 01/25/2025 Summary * Left ventricle is normal in size, with Overall well-preserved LVsystolic function. Mild basal septal hypokinesis. LVEF 55-60% range. Normal diastolic function. * Right ventricle is normal in size with normal systolic function. * The left atrium is normal in size. * The right atrium is normal in size. * Aortic valve is trileaflet with no stenosis, and no regurgitation. * Mitral valve is normal, with no stenosis, and trace regurgitation. * Tricuspid valve is normal, with no stenosis, and traceregurgitation. * The pulmonary artery systolic pressure is normal, 28 mmHg. * Pericardium is normal in appearance with no evidence for significant pericardial effusion. Patient Info Name: Ascencion Alexandre Age: 44 years : 1980 Gender: Male Ht: 70 in Wt: 207 lb BSA: 2.18 m2 HR: 78 bpm BP: 156 / 97 mmHg Exam Date: 01/24/2025 7:47 AM Patient Status: I/P Study Site: [facility] Primary Location: [facility] EStudy Info Exam Type: ECHO COMPLETE Indications I21.4 - NSTEMI (non-ST elevated myocardial infarction) (HCC) Procedure(s) * A complete 2D, color Doppler, and spectral Doppler transthoracic echocardiogram was performed. Staff Referring Physician: Libertad Nails Ordering Provider: Libertad Nails Attending Physician: Libertad Nails Supervisor Photostat: Jeri Kern Left Ventricle Left ventricle is normal in size, with Overall well-preserved LVsystolic function. Mild basal septal hypokinesis. LVEF 55-60% range. Normal diastolic function. Right Ventricle Right ventricle is normal in size with normal systolic function. Left Atrium The left atrium is normal in size. Right Atrium The right atrium is normal in size. Atrial Septum No patent ovale evident (PFO) by 2D and color Doppler imaging. Aortic Valve Aortic valve is trileaflet with no stenosis, and no regurgitation. Pulmonic Valve Pulmonic valve is normal, with no stenosis, and no regurgitation. Mitral Valve Mitral valve is normal, with no stenosis, and trace regurgitation. Tricuspid Valve Tricuspid valve is normal, with no stenosis, and trace regurgitation.The pulmonary artery systolic pressure is normal, 28 mmHg. Inferior Vena Cava Normal inferior vena cava with < 50% collapse upon inspirationconsistent with normal right atrial pressure, 3 mmHg. Pulmonary Veins Normal flow patterns noted in the pulmonary veins. Pericardium/Pleural Pericardium is normal in appearance with no evidence for significant pericardial effusion. Aorta The aortic root at the sinus of Valsalva is normal in size. Theascending aorta is normal in size. Measurements Left Ventricular Outflow Tract Name Value Normal LVOT 2D LVOT Diameter 2.1 cm LVOT Area 3.5 cm2 LVOT Doppler LVOT Peak Velocity 1.2 m/s LVOT Peak Gradient 6 mmHg Mitral Valve Name Value Normal MV Doppler MV PHT 51 ms MV Area (PHT) 4.31 cm2 4.00-5.00 MV Diastolic Function MV E Peak Velocity 1.0 m/sec MV A Peak Velocity 0.9 m/sec MV E/A 1.1 MV Decel Time (PW) 173 ms MV Annular TDI MV Septal e' Velocity 7 cm/s >=8 MV E/e' (Septal) 14 <=8 MV Lateral e' Velocity 8 cm/s >=10 MV E/e' (Lateral) 13 <=8 MV e' Average 8 cm/s MV E/e' (Average) 13 Tricuspid Valve Name Value Normal TV Regurgitation Doppler TR Peak Velocity 2.5 m/s TR Peak Gradient 25 mmHg Estimated PAP/RSVP RA Pressure 3 mmHg <=5 PA Systolic Pressure 28 mmHg <35 RV Systolic Pressure 28 mmHg <36 Aorta Name Value Normal Ascending Aorta Ao Root Diameter (2D) 3.5 cm Ao Root Diam Index (2D) 1.6 cm/m2 Asc Ao Diameter 3.2 cm 2.2-3.8 Asc Ao Diameter Index 1.5 cm/m2 1.1-1.9 Venous Name Value Normal IVC/SVC IVC Diameter 2.0 cm <=2.1 IVC Diameter (Exp MM) 2.0 cm <=2.1 Aortic Valve Name Value Normal AV Doppler AV Peak Velocity 1.48 m/s AV Peak Gradient 9 mmHg AV Area (Cont Eq Braeden) 2.86 cm2 AV DI (Braeden) 0.82 AV Regurgitation 2D LVOT Area 3.46 cm2 Ventricles Name Value Normal LV Dimensions 2D/MM IVS Diastolic Thickness (2D) 0.8 cm 0.6-1.0 LVID Diastole (2D) 5.1 cm 4.2-5.8 LVPW Diastolic Thickness (2D) 0.8 cm 0.6-1.0 LVID Systole (2D) 4.3 cm 2.5-4.0 LV Mass (2D Cubed) 140 g 88-224 LV Mass Index (2D Cubed) 65 g/m2 49-115 Relative Wall Thickness (2D) 0.31 <=0.42 LV Fractional Shortening/Ejection Fraction 2D/MM LV Fractional Shortening (2D) 16 % 25-43 LV EF (2D Teicholz) 33 % 52-72 LV Diastolic Volume (4C MOD) 171 ml LV EF (4C MOD) 41 % LV Diastolic Volume (2C MOD) 122 ml LV EF (2C MOD) 48 % LV Diastolic Volume (BP MOD) 156 ml 62-150 LV Diastolic Volume Index (BP MOD) 72 ml/m2 34-74 LV Systolic Volume (BP MOD) 85 ml 21-61 LV Systolic Volume Index (BP MOD) 39 ml/m2 11-31 LV EF (BP MOD) 46 % 52-72 LV Diastolic Length (4C) 8.4 cm LV Systolic Length (4C) 7.2 cm LV Stroke Volume (4C MOD) 70 ml Atria Name Value Normal LA Dimensions LA Dimension (2D) 2.8 cm 3.0-4.1 LA Dimen Index (2D) 1.3 cm/m2 LA Volume (BP MOD) 40 ml LA Volume Index (BP MOD) 19 ml/m2 16-34 Report Signatures Finalized by Libertad aNils on 01/25/2025 11:19 PM Libertad Nails MD ECHO CUPID Final Result * CBC W/O DIFFERENTIAL (01/24/2025 4:45 AM CDT) WBC 7.9 4.0 - 10.7 x10E9/L 01/24/2025 5:26 AM CDT [facility] RBC Count 4.71 4.30 - 5.80 x10E12/L 01/24/2025 5:26 AM CDT [facility] Hemoglobin 14.1 13.3 - 17.5 g/dL 01/24/2025 5:26 AM CDT [facility] Hematocrit 41.4 38.7 - 51.1 % 01/24/2025 5:26 AM CDT [facility] MCV 87.9 80.0 - 98.0 fL 01/24/2025 5:26 AM CDT [facility] MCH 29.9 26.7 - 33.6 pg 01/24/2025 5:26 AM CDT [facility] MCHC 34.1 31.7 - 36.3 g/dL 01/24/2025 5:26 AM CDT [facility] RDW-CV 12.1 11.3 - 14.8 % 01/24/2025 5:26 AM CDT [facility] Platelet Count 217 150 - 420 x10E9/L 01/24/2025 5:26 AM CDT [facility] MPV 10.0 7.8 - 11.4 fL 01/24/2025 5:26 AM CDT [facility] Blood BLOOD SPECIMEN / Unknown Lab Venipuncture / Unknown 01/24/2025 4:45 AM CDT 01/24/2025 5:24 AM CDT us Jaun Lafleur MD LAB - HEMATOLOGY ORDERABLES F inal Result [facility] [address] * (ABNORMAL) GLUCOSE - POINT OF CARE (01/23/2025 3:38 PM CDT) Glucose WB/POC 138(H) 70 - 125 mg/dL 01/23/2025 3:48 PM CDT [facility] Specimen Type Arterial/C apillary 01/23/2025 3:48 PM CDT [facility] Blood BLOOD SPECIMEN / Unknown 01/23/2025 3:38 PM CDT 01/23/2025 3:48 PM CDT us Hailesedrick Stephensonde DO LAB - POINT OF CARE ORDERAB LES Final Result Performing Organization Address [facility] Co de Phone Number [facility] [address] * (ABNORMAL) ISTAT ACT-C (01/23/2025 1:16 PM CDT) ACT-C iSTAT 430(H) 74 - 125 sec 01/23/2025 1:20 PM CDT [facility] Site R Radial 01/23/2025 1:20 PM CDT [facility] Sample iSTAT ART 01/23/2025 1:20 PM CDT [facility] Blood BLOOD SPECIMEN / Unknown 01/23/2025 1:16 PM CDT 01/23/2025 1:19 PM CDT [facility] - POINT OF CARE ORDERAB LES Final Result Performing Organization Address [facility]/ZIP Co de Phone Number [facility] [address] * CCL PERCUTANEOUS CORONARY INTERVENTION, CCL CORONARY IVUS (01/23/2025 1:11 PM CDT) Only the most recent of2 resultswithin the time period is included. Anatomical Region Laterality Modality X-Ray Angiograph y Narrative 01/26/2025 10:40 AM CDT IVUS guided PTCA/stent of 80% proximal LAD using 3.5 x 23 mm ALIZA post dilated in its proximal-mid segment with 4.5 mm NC balloon without residual stenosis intimal dissection or contrast extravasation . Procedure Details Estimated Blood Loss: 5 mL Coronary Findings Diagnostic Dominance: Right Left Anterior Descending: Prox LAD lesion is 80% stenosed. Culprit lesion. JACOB flow is 3. The lesion is type C. Ultrasound (IVUS) was performed. IVUS of LAD showed a distal reference vessel luminal diameter of 3.5 and proximal ref vessel luminal diameter of 4.2-4.3mm The LAD lesion was fibrocalcific Post PCI IVUS showed well expanded stent with MSA of 12 mm2 and wel apposed stent to arterial wall Intervention Prox LAD lesion: Angioplasty: Pre-stent angioplasty was performed using a non-compliant balloon. Supplies Used: Cath Balln Sphr Ii Pro 2.5Mm 15Mm Ptca Stent: A Sys Cor Stent XienceSkpt 3.50mm 23mm Rap drug-eluting stent was successfully placed. Angioplasty: Post-stent angioplasty was performed using a non-compliant balloon. Post stenting PTCA of proximal-mid segment of stent using NC 4.5 mm balloon Supplies Used: Cath Balln Sphr 4.5Mm X 15.0Mm Ptca Sl Post-Intervention Lesion Assessment: The intervention was successful. The guidewire crossed the lesion. Device was deployed. Post-intervention JACOB flow is 3. There were no complications. There is a 0% residual stenosis post intervention. Libertad Nails MD CV CARDIAC CATH CUPID PROCS F inal Result * (ABNORMAL) B-TYPE NATRIURETIC PEPTIDE (01/22/2025 4:34 AM CDT) BNP <10(L) 10 - 100 pg/mL 01/22/2025 5:17 AM CDT [facility] Blood BLOOD SPECIMEN / Unknown Lab Venipuncture / Unknown 01/22/2025 4:34 AM CDT 01/22/2025 4:46 AM CDT us Sabi Stephensonde DO LAB - CHEMISTRY ORDERABLES Final Result [facility] [address] [place] [address], [facility] * (ABNORMAL) LIPID PROFILE (01/21/2025 6:04 AM CDT) Cholesterol 207(H) <200 mg/dL 01/21/2025 6:[address] [facility] Triglycerides 110 <150 mg/dL 01/21/2025 6:[address] [facility] HDL Cholesterol 41 >40 mg/dL 6:[address] [facility] Chol HDL Ratio 5.0 1.0 - 6.0 01/21/2025 6:[address] [facility] LDL Calculated 144(H) 65 - 130 mg/dL 01/21/2025 6:[address] [facility] Comment:LDL is calculated us ing the Friedewald equation. VLDL Calculated 22 <=30 mg/dL 01/21/2025 6:[address] [facility] Blood BLOOD SPECIMEN / Unknown Venipuncture / Unknown 01/21/2025 6:04 AM CDT 01/21/2025 6:[address] [facility] - 01/21/2025 6:27 AM CDT Lipid Profile Comment: CHOLESTEROL LEVEL..................CLINICAL INTERPRETATION LESS THAN 200 MG/DL..............................DESIRABLE 200-239 MG/DL..............................BORDERLINE HIGH GREATER THAN 240 MG/DL................................HIGH LDL-CHOLESTEROL LEVEL..............CLINICAL INTERPRETATION LESS THAN 100 MG/DL................................OPTIMAL 100-129 MG/DL.................................NEAR OPTIMAL GREATER THAN 160 MG/DL...........................HIGH RISK HDL RISK LEVEL GREATER THEN 60 MG/DL............................DECREASED 40-60 MG/DL........................................AVERAGE LESS THAN 40 MG/DL...............................INCREASED TRIGLYCERIDE LEVEL..................CLINICAL INTERPRETATION LESS THAN 150 MG/DL...............................DESIRABLE 150-199 MG/DL...............................BORDERLINE HIGH 200-499 MG/DL..........................................HIGH GREATER THAN 500..................................VERY HIGH THE NATIONAL CHOLESTEROL EDUCATION PROGRAM HAS SET THE ABOVE GUIDELINES (REFERANCE VALUES) FOR CHOLESTEROL AND HDL. RISK ASSOCIATED WITH CHOLESTEROL/HDL RATIOS RISK....................MALE RATIO.............FEMALE RATIO 1/2 AVERAGE.................<3.4.......................<3.3 LOW RISK.................... 4.0 ...................... 3.8 AVERAGE..................... 5.0 ...................... 4.5 2X AVERAGE.................. 9.5 ...................... 7.0 3X AVERAGE...................>23........................>11 us Lucy English MD LAB - CHEMISTRY ORDERABL ES Final Result Performing Organization Address City/State/[facility] Co de Phone Number [facility] [address] [place] [address] * DRUG ABUSE URINE SCREEN 10 (01/20/2025 9:03 PM CDT) Amphetamines Screen Urine Negative Negative 01/20/2025 9:[address] [facility] Barbiturates Screen Urine Negative Negative 01/20/2025 9:[address] [facility] Benzodiazepines Screen Urine Negative Negative 01/20/2025 9:[address] [facility] Cannabinoids Screen Urine Negative Negative 01/20/2025 9:[address] [facility] Cocaine Screen Urine Negative Negative 01/20/2025 9:[address] [facility] Methadone Screen Urine Negative Negative 01/20/2025 9:[address] [facility] Opiate Screen Urine Negative Negative 01/20 9:[address] [facility] Phencyclidine Screen Urine Negative Negative 01/20/2025 9:[address] [facility] Tricyclics Screen Urine Negative Negative 01/20/2025 9:[address] [facility] Methamphetamine Screen Urine Negative Negative 01/20/2025 9:[address] [facility] Buprenorphine Screen Urine Negative Negative 01/20/2025 9:[address] [facility] Oxycodone Screen Urine Negative Negative 01/20/2025 9:[address] [facility] Urine URINE / Unknown Collection / Unknown 01/20/2025 9:03 PM CDT 01/20/2025 9:[address] [facility] - 01/20/2025 9:31 PM CDT This is a presumptive/unconfirmed test for medical treatment purposes only. Clinical consideration and professional judgment should be applied when using presumptive results. If confirmatory testing, such as gas chromatography-mass spectrometry (GC/MS), of any positive results of this test is required, please notify the laboratory within 7 days of collection. This test is intended only for monitoring or management of patients. It is not intended for use in job-related and/or legal-related purposes. The cutoff value for each analyte is: Barbiturates.....200 ng/mL Benzodiazepines......150 ng/mL Cocaine..........150 ng/mL Opiates..............100 ng/mL Phencyclidine.....25 ng/mL Tricyclics...........300 ng/mL Cannabinoid.......50 ng/mL Amphetamines.........500 ng/mL Methadone........200 ng/mL Methamphetamines.....500 ng/mL Buprenorphine.....10 ng/mL Oxycodone............100 ng/mL us Lucy English MD LAB - URINE CHEMISTRY OR DERABLES Final Result [facility] [address] * (ABNORMAL) URINALYSIS REFLEX MICROSCOPIC REFLEX CULTURE (01/20/2025 9:03 PM CDT) Color UA Colorless(A) Yellow, Straw 01/20/2025 9:[address] [facility] Clarity UA Clear Clear 01/20/2025 9:[address] [facility] Glucose UA Trace(A) Negative 01/20/2025 9:[address] [facility] Bilirubin UA Negative Negative 01/20/2025 9:[address] [facility] Ketone UA Negative Negative 01/20/2025 9:[address] [facility] Specific [place] UA 1.010 1.005 - 1.030 01/20/2025 9:[address] [facility] Blood UA Negative Negative 01/20/2025 9:[address] [facility] pH UA 5.5 5.0 - 8.0 01/20/2025 9:[address] [facility] Protein UA Negative Negative 01/20/2025 9:[address] [facility] Urobilinogen UA Normal Normal mg/dL 01/20/2025 9:[address] [facility] Nitrite UA Negative Negative 01/20/2025 9:[address] [facility] Leukocyte Esterase UA Negative Negative 01/20/2025 9:[address] [facility] Reflex Status Culture not indicated 01/20/2025 9:[address] [facility] Urine Microscopy Urine microscopy not indicated 01/20/2025 9:[address] [facility] Urine URINE SPECIMEN OBTAINED BY CLEAN CATCH PROCEDURE / Unknown Collection / Unknown 01/20/2025 9:03 PM CDT 01/20/2025 9:19 PM CDT Lucy English MD LAB - URINALYSIS ORDERAB LES Final Result Performing Organization Address [facility]/State/[facility] Co de Phone Number [facility] [address] [place] [address] * (ABNORMAL) PT-INR (01/20/2025 9:03 PM CDT) PT 13.1 11.3 - 14.8 sec 01/20/2025 9:[address] [facility] INR 1.00(L) 2 - 3 01/20/2025 9:[address] [facility] Blood BLOOD SPECIMEN / Unknown Venipuncture / Unknown 01/20/2025 9:03 PM CDT 01/20/2025 9:[address] [facility] - 01/20/2025 9:38 PM CDT Recommended therapeutic INR ranges for Oral Anticoagulant Therapy: 2.0-3.0 For prevention of Thrombosis or Embolism and treatment of Venous Thrombosis. 2.5- 3.5 for prevention of Recurrent Embolism or treatment of patients with Mechanical Prosthetic Heart Valves. Lucy English MD LAB - COAGULATION ORDERA BLES Final Result Performing Organization Address [facility] de Phone Number [facility] [address] [place] [address] * (ABNORMAL) TROPONIN-I HIGH SENSITIVE REFLEX 1HOUR (01/20/2025 7:40 PM CDT) [facility] Troponin I High Sensitive 46(H) <=35 ng/L 01/20/2025 8:[address] [facility] Delta Troponin I HS 39(H) <6 ng/L 01/20/2025 8:[address] [facility] Comment:For acute chest pain (<3 hours), a delta of > or = 6 ng/L from baseline to 1 hour may indicate myocardial injury. Blood BLOOD SPECIMEN / Unknown Venipuncture / Unknown 01/20/2025 7:40 PM CDT 01/20/2025 7:43 PM CDT Lucy English MD LAB - CHEMISTRY ORDERABL ES Final Result Performing Organization Address [facility] de Phone Number [facility] [address] [place] [address] * XR CHEST 1VW PORTABLE (01/20/2025 6:30 PM CDT) Anatomical Region Laterality Modality Chest Computed Radiogr aphy 01/21/2025 10:2 0 AM CDT Narrative 01/21/2025 10:21 AM CDT Portable AP Chest x-ray INDICATION: R07.89: Other chest pain COMPARISON: 06/28/2023 FINDINGS: There is no focal infiltrate or consolidation. Heart size is normal. No evidence of pneumothorax or pleural effusion. A mass is not detected. > Interpreting Provider: Thony Joseph JR, MD on 01/21/2025 10:21 AM Procedure Note Thony Joseph MD - 01/21/2025 Portable AP Chest x-ray INDICATION: R07.89: Other chest pain COMPARISON: 06/28/2023 FINDINGS: There is no focal infiltrate or consolidation. Heart size is normal. No evidence of pneumothorax or pleural effusion. A mass is not detected. > Interpreting Provider: Thony Joseph JR, MD on 01/21/2025 10:21 AM Lucy English MD DIAGNOSTIC IMAGING ORDER JONO Final Result * TROPONIN-I HIGH SENSITIVE BASELINE + 1HR (01/20/2025 6:13 PM CDT) [facility] Troponin I High Sensitive 7 <=35 ng/L 01/20/2025 6:[address] [facility] Blood BLOOD SPECIMEN / Unknown Venipuncture / Unknown 01/20/2025 6:13 PM CDT 01/20/2025 6:18 PM CDT Lucy English MD LAB - CHEMISTRY ORDERABL ES Final Result Performing Organization Address [facility] Co de Phone Number [facility] [address] * D-DIMER (01/20/2025 6:13 PM CDT) [facility] D-Dimer <0.27 <0.50 ug/mL FEU 01/20/2025 6:[address] [facility] Blood BLOOD SPECIMEN / Unknown Venipuncture / Unknown 01/20/2025 6:13 PM CDT 01/20/2025 6:[address] [facility] - 01/20/2025 6:52 PM CDT Intended for use in conjunction with a clinical pretest probability (PTP) assessment model to exclude pulmonary embolism (PE) and deep venous thrombosis (DVT) in outpatients suspected of PE or DVT when the D-dimer level is inferior to a predefined cut-off. A D-dimer test should be used in conjunction with a well validated clinical score to safely exclude VTE in outpatients with a low or moderate clinical score. Patients with distal DVT may have a normal D-dimer level. In DIC the D-dimer level increases, therefore D-dimer assays can help in the diagnosis of DIC and in DIC patient management. us Lucy English MD LAB - COAGULATION ORDERA BLES Final Result [facility] [address] [place], [place] [id number] [place] [address] * (ABNORMAL) COMPREHENSIVE METABOLIC PANEL (01/20/2025 6:13 PM CDT) Glucose 155(H) 70 - 125 mg/dL 01/20/2025 6:[address] [facility] Sodium 140 136 - 145 mmol/L 01/20/2025 6:[address] [facility] Potassium 3.6 3.4 - 5.1 mmol/L 01/20/2025 6:[address] [facility] Chloride 105 98 - 107 mmol/L 01/20/2025 6:[address] [facility] CO2 22 22 - 29 mmol/L 01/20/2025 6:[address] [facility] Calcium 8.48 8.4 - 10.2 mg/dL 01/20/2025 6:[address] [facility] Anion Gap 13 6 - 16 mmol/L 01/20/2025 6:[address] [facility] BUN 11.6 8.4 - 25.7 mg/dL 01/20/2025 6:[address] [facility] Creatinine 1.07 0.72 - 1.25 mg/dL 01/20/2025 6:[address] [facility] Alkaline Phosphatase 58 40 - 150 U/L 01/20/2025 6:[address] [facility] ALT 53(H) 7 - 42 U/L 01/20/2025 6:[address] [facility] AST 34 5 - 34 U/L 01/20/2025 6:[address] [facility] Protein Total 6.7 6.4 - 8.3 gm/dL 01/20/2025 6:[address] [facility] Albumin 4.1 3.1 - 4.5 gm/dL 01/20/2025 6:[address] [facility] Globulin Total 2.6 2.6 - 4.0 gm/dL 01/20/2025 6:[address] [facility] Albumin/Globulin Ratio 1.6 0.9 - 1.6 01/20/2025 6:[address] [facility] Bilirubin Total 0.4 0.2 - 1.2 mg/dL 01/20/2025 6:[address] [facility] eGFR 87(L) >90 mL/min/1.7 3m2 01/20/2025 6:[address] [facility] Comment:Estimated Glomerular Filtration Rate (eGFR) calculated using the CKD-EPI Creatinine Equation (2020), per the National Kidney Foundation and [place] [employer]ph[employer] recommendations. Blood BLOOD SPECIMEN / Unknown Venipuncture / Unknown 01/20/2025 6:13 PM CDT 01/20/2025 6:18 PM CDT Lucy English MD LAB - CHEMISTRY ORDERABL ES Final Result Performing Organization Address [facility]/ZIP Co de Phone Number [facility] [address] * MAGNESIUM BLOOD (01/20/2025 6:13 PM CDT) Magnesium 1.7 1.6 - 2.6 mg/dL 01/20/2025 6:[address] [facility] Blood BLOOD SPECIMEN / Unknown Venipuncture / Unknown 01/20/2025 6:13 PM CDT 01/20/2025 6:18 PM CDT Lucy English MD LAB - CHEMISTRY ORDERABL ES Final Result Performing Organization Address City/[facility] Co de Phone Number 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
--- NOTE | 2025-02-05 21:51 | ED_ITS ---
HPI - Chest Pain General Chief Complaint: Chest Pain Stated Complaint: chest tightness, SOB Time Seen by Provider: 02/05/25 20:59 Source: patient and family Mode of arrival: ambulatory Limitations: no limitations History of Present Illness HPI narrative: Patient presents with chest pain that started last night. He describes it as a tightness associated shortness of breath. He is also experiencing palpitations with exertion particularly going upstairs. He has a history of 2 recent STEMIs s/p stents x2. He reports this stent was placed 01/23/[address] [facility]. He was then transferred to [facility] where Dr Quinones placed a stent 01/26 , unknown vessel. He had previously had an echo your preferred through [facility] burning showed ejection fraction of 65% by report a reports that when this was repeated at [facility] outpatient his EF was 41%. 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 A had no underlying respiratory conditions. No underlying cardiac issues prior to this. He is Protonix. He is on Plavix as a 1 mg aspirin. He has had a little cough. Denies any fevers or chills although his feet feel cold. Denies any edema currently he thought he had earlier. This is or exogenous use. No previous PE or DVT. He reports the received nitroglycerin and his blood pressure became very hypotensive, SBP 70. He has taken no medications prior to arrival. Patient is concerned that he does not have clear instructions what he should be concerned about given he has symptoms. He states when he was discharged from the hospital he was told he could just resume activity as normal. Cardiac risk factors HTN: Yes (however not on medications before STEMI and not on anything including no beta xiomara post STEMI) HLD: Yes - on atorvastatin DM: No Obese: Yes (barely) per ht/wt obtained today Smoker: No Personal history IN/TIA/CVA: Yes Fam Hx IN in first degree relative <65yo: No Related Data Home Medications ?Medication ?Instructions ?Recorded ?Confirmed ?Last Taken ?Type aspirin 81 mg tablet,delayed 81 mg PO DAILY 02/06/25 1 02/06/25 History release atorvastatin 80 mg tablet 80 mg PO QAM 02/06/2502/06/25 History clopidogrel 75 mg tablet 75 mg PO DAILY 02/06/2509/2602/06/25 History colchicine 0.6 mg tablet 0.6 mg PO .q12hr 02/06/2502/05/25 09:00 History pantoprazole 40 mg tablet,delayed 40 mg PO Q12H 02/06/25 02/06/25 History release Allergies Allergy/AdvReac Type Severity Reaction Status Date / Time nitroglycerin Allergy Severe Hypotension Verified 02/06/25 03:04 vancomycin Allergy Intermediate Redness of Verified 02/06/25 03:04 Skin prednisolone Allergy Unknown hives Verified 02/06/25 03:04 Milk Containing Products AdvReac Mild Heartburn Verified 02/06/25 03:05 (Dairy) [facility] Past Medical History Medical History History of ST elevation myocardial infarction (STEMI) x2 in Jan 2025 Hyperlipidemia Eosinophilic esophagitis Hypertension CAD (coronary artery disease) Surgical History Surgical History History of repair of ACL Right knee H/O esophagogastroduodenoscopy H/O cardiac catheterization X2 H/O heart artery stent LAD stent 01/23/2025 only M2 since 01/26/2025 Family History Family History Mother Lung cancer Father Malignant neoplasm of prostate Social History Social History Social History: The patient lives with his and 2 children in [facility]. 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 Code status: Full code Smoking status: Former smoker Tobacco type: cigarettes Smokeless tobacco user: chewing tobacco Second hand tobacco smoke exposure: No Alcohol intake: current Drinks per week: 1 Substance use: former Substance use type: marijuana Last use: 2004 Lack of Transportation: No Lack of Food: Never True Current Housing: I Have Housing Concerned About Future Housing: No Difficulty Paying Gas/Electric Bills: No Difficulty Paying for Meds: No Currently Unemployed: No Education: Master's Degree or Higher Difficulty w/ Childcare or Family Care: No Spiritual care concerns: No Exam 2 Narrative: GENERAL: Well-appearing, well-nourished, and in no acute distress. HEAD: Normocephalic, atraumatic. EYES: Non injected, non icteric ENT: Nares clear, no rhinorrhea or epistaxis. Gross auditory acuity intact. NECK: Supple. No meningismus. CHEST: Speaking in full sentences. No respiratory distress. HEART: Regular rate and rhythm. . ABDOMEN: Soft, nondistended. No rigidity or guarding. Not peritoneal EXTREMITIES: Normal range of motion. No bilateral lower extremity edema. SKIN: Warm, dry, no rash. NEURO: No focal deficits. Alert and oriented. Answering questions. Following commands. Normal speech without aphasia or dysarthria. PSYCH: Normal mood and affect. Course Vital Signs Vital signs: Vital Signs Temperature 98.1 F 02/05/25 20:39 Pulse Rate 79 02/05/25 20:39 Respiratory Rate 20 02/05/25 20:39 Blood Pressure 139/94 H 02/05/25 20:39 Pulse Oximetry 100 02/05/25 20:39 Oxygen Delivery Room Air 02/05/25 20:39 Temperature 98.1 F 02/06/25 16:00 Pulse Rate 96 02/06/25 18:00 Respiratory Rate 18 02/06/25 16:00 Blood Pressure 104/60 02/06/25 16:00 Pulse Oximetry 99 02/06/25 16:00 Oxygen Delivery Room Air 02/06/25 16:00 MDM - Chest Pain MDM Narrative Medical decision making narrative: Patient presents with report of chest pain and tightness as as shortness of breath started last night. History of STEMI x2 during the month of January 2025 for which he has had 2 stents placed (LAD 01/23/25 through [facility] and [facility] 01/[address] Quinones, unknown vessel). He reports that an echo that had been performed through [facility] burn showed ejection fraction 65% and repeat echo performed outpatient [facility] showed EF was 41%. In the emergency department he is afebrile with acceptable vital signs, mild hypertension. HEART SCORE History 2 highly suspicious 1 moderately suspicious 0 slightly suspicious History score [address] depression/elevation not due to LBBB, LVH, or digoxin [address] depression but LBBB, LVH, nonspecific repolarization changes 0 normal ECG score 0 Age 2 >/= 65 1 45-64 0 <45 Age score 1 Risk factors (HTN, hypercholesterolemia, DM, obesity with BMI >30, current smoker or cessation </=3mo), positive fam hx with parent or sibling with CVD before age 65, atherosclerotic disease (prior IN, PCI/CABG, CVA/TIA, or peripheral arterial disease) 2 >/= 3 risk factors or history of atherosclerotic dz 1 - 1-2 risk factors 0 no known risk factors Risk factor score 2 Initial Troponin 2 >3 times normal limit 1 1-3 times normal limit 0 less than or equal to normal limit Troponin score 2 (3.55 x upper limit of normal) Total HEART Score 5 PERC Rule Age greater than or equal to 50: 0 HR greater than or equal to 100: 0 O2 sat room air <95%: 0 Unilateral leg swelling: Hemoptysis: Recent surgery or trauma less than 4 wks ago requiring tx with general anesthesia: stent placement Prior PE or DVT: Hormone use (OCP, HRT or estrogenic hormone use in M/F patients): Will obtain D dimer. Very mild hyponatremia. No prior for comparison. Mild thrombocytosis. D-dimer is within normal limits. Will not proceed with further workup for this. Will need admission for NSTEMI. Although I suspect that he will not undergo cardiac catheterization again, patient may benefit from a thorough review of both his medications as well as better Education moving forward. Patient had not been on any antihypertensives prior to his STEMI and he is on any currently including beta-xiomara. The reason for this is unclear. He is not a nitroglycerin as he had an adverse reaction in which he became hypotensive with systolic blood pressure 70 mmHg after obtaining 1 dose. Not on Imdur. Not in cardiac rehab program. Had been advised to return to daily activity although he and his have questions about this. Discussed with June Jones. Echo ordered as we don't have one here and consultation order placed for cardiology. She will work on obtaining records from outside facilities. Repeat troponin is still elevated though essentially flat, stable. BNP within normal limits. Thyroid normal. Differential Diagnosis Differential diagnosis: Likely stable angina, unstable angina pectoris, atypical chest pain, st elevation myocardial infarction, chest pain, biliary colic and other (heart failure; arrhythmia, heart failure, ventricular aneurysm, mechanical defect, post myocardial infarction pericarditis) Lab Data 02/06/25 03:47 02/05/25 20:50 Labs: Lab Results 02/05/25 02/05/2525 Range/Units 20:49 20:50 22:47 WBC 6.3 (4.5-10.0) K/mm3 RBC 4.93 (4.6-6.20) M/mm3 Hgb 14.1 (14.0-18.0) g/dL Hct 41.4 L (42.0-52.0) % MCV 84.0 (80-100) fl MCH 28.6 (26-34) pg MCHC 34.1 (32-36) g/dl RDW 11.9 (11.5-14.5) % Plt Count 386 H (150-375) k/mm3 MPV 8.9 (7.4-10.4) fl Immature Gran % (Auto) 0.5 (0-0.5) % Neut % (Auto) 59.1 (45.5-73.1) % Lymph % (Auto) 29.8 (18.3-44.2) % Woods % (Auto) 7.9 (2.6-8.5) % Eos % (Auto) 2.2 (0-4.4) % Baso % (Auto) 0.5 (0.2-1.2) % Lymph # (Auto) 1.88 (0.9-3.2) K/mm3 Woods # (Auto) 0.5 (0.1-0.6) K/mm3 Eos # (Auto) 0.1 (0-0.3) K/mm3 Baso # (Auto) 0.0 (0.0-0.1) K/mm3 Abs Immat Gran (auto) 0.03 (0.00-0.031) K/mm3 Absolute Neuts (auto) 3.7 (1.3-6.7) K/mm3 Absolute Nucleated RBC 0.000 (0.0-0.012) K/mm3 Nucleated RBC % 0.0 (0.0-0.2) % PT 14.3 (11.1-14.7) Seconds INR 1.1 APTT 27.2 (22.3-36.8) Seconds D-Dimer 0.28 (<0.48) ug/mL Sodium 135 L (137-145) mmol/L Potassium 4.0 (3.4-5.0) mmol/L Chloride 101 (98-107) mmol/L Carbon Dioxide 30 (22-30) mmol/L Anion Gap 4 (4-12) mmol/L BUN 14 (9-20) mg/dL Creatinine 1.00 (0.7-1.3) mg/dL Estim Creat Clear Calc 96 ml/min Estimated GFR > 60 (59 - ) Glucose 109 (65-110) mg/dL Calcium 9.0 (8.4-10.2) mg/dL Total Bilirubin 0.4 (0.2-1.3) mg/dL AST 31 (17-59) U/L ALT 43 (6-50) U/L Alkaline Phosphatase 63 (38-126) U/L Troponin I 0.121 H* (0.000-0.034) ng/mL NT-Pro-B Natriuret Pep (19.9-100) pg/mL Total Protein 6.9 (6.3-8.2) g/dL Albumin 4.1 (3.5-5.1) g/dL Lipase 161 (23-300) U/L TSH (0.465-4.680) uIU/mL Influenza A (RT-PCR) Negative (Negative) Influenza B (RT-PCR) Negative (Negative) RSV (RT-PCR) Negative (Negative) SARS-CoV-2 RNA (RT-PCR) Negative (Negative) 02/05/25 Range/Units 23:50 WBC (4.5-10.0) K/mm3 RBC (4.6-6.20) M/mm3 Hgb (14.0-18.0) g/dL Hct (42.0-52.0) % MCV (80-100) fl MCH (26-34) pg MCHC (32-36) g/dl RDW (11.5-14.5) % Plt Count (150-375) k/mm3 MPV (7.4-10.4) fl Immature Gran % (Auto) (0-0.5) % Neut % (Auto) (45.5-73.1) % Lymph % (Auto) (18.3-44.2) % Woods % (Auto) (2.6-8.5) % Eos % (Auto) (0-4.4) % Baso % (Auto) (0.2-1.2) % Lymph # (Auto) (0.9-3.2) K/mm3 Woods # (Auto) (0.1-0.6) K/mm3 Eos # (Auto) (0-0.3) K/mm3 Baso # (Auto) (0.0-0.1) K/mm3 Abs Immat Gran (auto) (0.00-0.031) K/mm3 Absolute Neuts (auto) (1.3-6.7) K/mm3 Absolute Nucleated RBC (0.0-0.012) K/mm3 Nucleated RBC % (0.0-0.2) % PT (11.1-14.7) Seconds INR APTT (22.3-36.8) Seconds D-Dimer (<0.48) ug/mL Sodium (137-145) mmol/L Potassium (3.4-5.0) mmol/L Chloride (98-107) mmol/L Carbon Dioxide (22-30) mmol/L Anion Gap (4-12) mmol/L BUN (9-20) mg/dL Creatinine (0.7-1.3) mg/dL Estim Creat Clear Calc ml/min Estimated GFR (59 - ) Glucose (65-110) mg/dL Calcium (8.4-10.2) mg/dL Total Bilirubin (0.2-1.3) mg/dL AST (17-59) U/L ALT (6-50) U/L Alkaline Phosphatase (38-126) U/L Troponin I 0.120 H* (0.000-0.034) ng/mL NT-Pro-B Natriuret Pep 72 (19.9-100) pg/mL Total Protein (6.3-8.2) g/dL Albumin (3.5-5.1) g/dL Lipase (23-300) U/L TSH 1.790 (0.465-4.680) uIU/mL Influenza A (RT-PCR) (Negative) Influenza B (RT-PCR) (Negative) RSV (RT-PCR) (Negative) SARS-CoV-2 RNA (RT-PCR) (Negative) Imaging Data Attestation: I personally reviewed and interpreted this imaging study as follows: My impression: Chest x-ray negative for acute intrathoracic process on my independent interpretation. ECG Data EKG #1: Attestation: I personally reviewed and interpreted this ECG as follows: ECG completion date: 02/05/25 ECG completion time: 20:42 Prior ECG tracings: not available for review (No prior for comparison in the EMR) Interpretation: Normal sinus rhythm at a rate of 76 beats per minute. VT interval 173. QRS 105. QT/QTC 471/419. Poor R-wave progression across the precordial leads. No T-wave inversions. Left axis deviation. Incomplete RBBB given QRS less [id number]; RSR' M-shaped pattern in V1-V3; to a lesser extent wide, slurred S wave in lateral leads (I, aVL, barely present in V5-6) EKG #2: Attestation: I personally reviewed and interpreted this ECG as follows: ECG completion date: 02/05/25 ECG completion time: 23:46 Interpretation: Normal sinus rhythm at a rate of 67 beats per minute. VT interval 182. QRS 101. QT/QTC 400/423. Marked left axis deviation. Incomplete RBBB given QRS less [id number]; RSR' M-shaped pattern in V1-V3. T-wave inversion versus biphasic in lead 3 but upright in contiguous inferior leads no other T-wave inversions. Discharge Plan Discharge Clinical Impression: Chest tightness, Shortness of breath, Non-ST elevation IN (NSTEMI), Thrombocytosis, Heart palpitations Patient Disposition: Still a Patient Condition: Stable Time of Disposition: 00:40
[2025-02-05 23:30] LABS: Influenza A QL RT-PCR Negative (Negative); Influenza B QL RT-PCR Negative (Negative); RSV RNA, RT-PCR Negative (Negative); SARS-CoV-2 RNA PCR Negative (Negative)
[2025-02-05] MEDS: MORPHINE SULFATE (*CRX) 4 MG/ML INJ 2 MG IV PUSH (23:35)
--- NOTE | 2025-02-05 23:50 | ECG_ITS ---
Test Date: 2025-02-05 23:46:46 Measurements Intervals [place] Rate: 67 P: 27 UT: 182 QRS: -36 QRSD: 101 T: 23 QT: 400 QTc: 423 Interpretive Statements SINUS RHYTHM LEFT AXIS DEVIATION INCOMPLETE RIGHT BUNDLE BRANCH BLOCK VOLTAGE CRITERIA FOR LVH CANNOT R/O SEPTAL INFARCT, AGE INDETERMINATE ABNORMAL ECG Compared to ECG 02/05/2025 20:42:38 No significant changes Electronically Signed On 02-06-2025 08:14:02 CDT by Sandeep Liang D.O.
[2025-02-06] VITALS (29 sets, daily range): BP systolic 104–147; BP diastolic 60–98; PULSE 55–96; RESP 11–20; TEMP 36.4–36.8; O2SAT 97–99; BMI 30.3
[2025-02-06] MEDS: HEPARIN SOD/D5W 100 UNITS/ML 25,000 UNITS/250 ML BAG 10 UNITS IV CONT (00:20)
[2025-02-06] MEDS: PHARMACIST COMMUNICATION ORDER 1 EACH XX (00:21)
[2025-02-06 00:30] LABS: NT Pro B Type Natriuretic Pept 72 pg/mL (19.9-100)
[2025-02-06 00:37] LABS: Troponin I 0.120 ng/mL (0.000-0.034)
[2025-02-06 00:52] LABS: Thyroid Stimulating Hormone 1.790 uIU/mL (0.465-4.680)
--- NOTE | 2025-02-06 02:27 | ADMGEN ---
This patient, Ascencion Alexandre, was admitted to IMU Room 209-. Patient/family oriented to hospital policies and general routines including ID bracelet, bed and alarms, visiting hours, pain management, procedures, bathroom and other care routines, personal items, smoking policy, room service/diet, and visiting hours. Information on how to activate the Rapid Response Team has been discussed. Patient/Family are encouraged to report perceived risks to care and to ask questions if they do not understand what they are told or what they should do.
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
[2025-02-06] MEDS: MORPHINE SULFATE (*CRX) 4 MG/ML INJ 2 MG IV PUSH ×2 (04:19→14:44)
[2025-02-06 04:35] LABS: Hematocrit 38.9 % (42.0-52.0); Hemoglobin 13.3 g/dL (14.0-18.0); Immature Granulocyte Percent A 0.5 % (0-0.5); Lymphocytes Absolute Auto 2.51 K/mm3 (0.9-3.2); Mean Corpuscular HGB Conc 34.2 g/dl (32-36); Mean Corpuscular Hemoglobin 29.0 pg (26-34); Mean Corpuscular Volume 84.9 fl (80-100); Nucleated Red Blood Cells Absolute Auto 0.000 K/mm3 (0.0-0.012); Nucleated Red Blood Cells Perc 0.0 % (0.0-0.2); Platelet Count Result 353 k/mm3 (150-375); Red Blood Count 4.58 M/mm3 (4.6-6.20); White Blood Count 6.2 K/mm3 (4.5-10.0)
[2025-02-06 05:06] LABS: Cholesterol 101 mg/dL (0-200); HDL Direct 25 mg/dL; Triglycerides 103 mg/dL (<150)
[2025-02-06 05:19] LABS: Troponin I 0.129 ng/mL (0.000-0.034)
[2025-02-06 06:46] LABS: Partial Thromboplastin Time 69.8 Seconds (22.3-36.8)
[2025-02-06] MEDS: PANTOPRAZOLE 40 MG TABLET PO ×2 (08:40→20:42)
[2025-02-06] MEDS: ATORVASTATIN 40 MG TABLET 80 MG PO (08:40)
[2025-02-06] MEDS: ACETAMINOPHEN 325 MG TABLET 650 MG PO ×2 (08:40→14:44)
[2025-02-06] MEDS: ASPIRIN 81 MG ENTERIC TABLET PO (08:40)
[2025-02-06] MEDS: CLOPIDOGREL BISULFATE 75 MG TABLET PO (08:40)
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
[2025-02-06] MEDS: ENOXAPARIN 100 MG/ML SYRINGE SUB-Q (12:21)
[2025-02-06] MEDS: COLCHICINE 0.6 MG TABLET PO ×2 (12:21→20:42)
[2025-02-06 13:32] LABS: Partial Thromboplastin Time 66.4 Seconds (22.3-36.8)
[2025-02-06 13:41] LABS: CRP < 0.5 mg/dL (<1.0)
--- NOTE | 2025-02-06 14:09 | ECG_ITS ---
Test Date: 2025-02-06 14:14:40 Measurements Intervals Dexter Rate: 75 P: 33 IL: 162 QRS: -36 QRSD: 110 T: 16 QT: 394 QTc: 441 Interpretive Statements SINUS RHYTHM LEFT AXIS DEVIATION VOLTAGE CRITERIA FOR LVH CANNOT R/O SEPTAL INFARCT, AGE INDETERMINATE ABNORMAL ECG Compared to ECG 02/05/2025 23:46:46 NO SIGNIFICANT CHANGE Electronically Signed On 02-06-2025 19:29:42 CDT by Sandeep Liang D.O.
[2025-02-06 15:59] LABS: Troponin I 0.109 ng/mL (0.000-0.034)
[2025-02-06 18:24] LABS: Troponin I 0.102 ng/mL (0.000-0.034)
[2025-02-06 21:35] LABS: Troponin I 0.099 ng/mL (0.000-0.034)
[2025-02-07] VITALS (15 sets, daily range): BP systolic 107–135; BP diastolic 64–94; PULSE 56–84; RESP 14–20; TEMP 36.3–36.8; O2SAT 97–99
--- NOTE | 2025-02-07 | ECHO_ITS ---
Patient Info Name: Ascencion Alexandre Age: 44 years : 1980 Gender: Male Ht: 70 in Wt: 219 lbs BSA: 2.24 m2 HR: 56 bpm BP: 107 / 64 mmHg Technical Quality: Good Exam Date: 02/07/2025 10:14 AM Patient Status: I Admit Date: 02/06/2025 Exam Type: CA echo dop color flow w con Complete two-dimensional, color flow and Doppler transthoracic echocardiogram is performed with contrast to opacify the left ventricle and to improve the deliniation of the left ventricle endocardial borders. Staff Referring Physician: Sidney Blackmon Estimator Printing Plate Making: Thony Rizzo III Attending Provider: Trinity Menon Contrast/Agitated Saline Contrast/Ag. Saline: Definity Amount: 2.00 ml Administered By: Thony Rizzo III Existing IV Access: Yes IV Access Condition: patent with no signs of infiltration Summary 1. Left ventricular systolic function is normal, estimated at 45-50. 2. Right ventricular chamber dimension is mildly enlarged. 3. Right ventricular systolic function is normal. Left Ventricle Left ventricular chamber dimension is mildly enlarged. Left ventricular systolic function is normal, estimated at 45-50. There is no increased left ventricular wall thickness. The left ventricular diastolic function is abnormal. Right Ventricle Right ventricular chamber dimension is mildly enlarged. Right ventricular systolic function is normal. Left Atria Left atrial chamber dimension is normal. Right Atria Right atrial chamber dimension is normal. Aortic Valve The aortic valve is trileaflet. There is no aortic valve sclerosis. There is no aortic valve stenosis. There is no aortic valve regurgitation. Pulmonic Valve The pulmonic valve is normal. There is no pulmonic valve stenosis. There is no pulmonic regurgitation. Mitral Valve The mitral valve has normal leaflets. There is no mitral valve stenosis. There is no mitral valve regurgitation. Tricuspid Valve The tricuspid valve leaflets are normal. There is no significant tricuspid valve stenosis. There is no tricuspid valve regurgitation. Pericardium/Pleural The pericardium appears normal. There is no pericardial effusion. Inferior Vena Cava Normal inferior vena cava with >50% collapse upon inspiration consistent with normal right atrial pressure, 5 mmHg. Aorta The aortic root size at the sinus of Valsalva is normal. The prox ascending aorta size is normal. Left Ventricular Outflow Tract Name Value Normal LVOT 2D LVOT Diameter 2.2 cm LVOT Doppler LVOT Peak Velocity 114 cm/s LVOT Peak Gradient 5 mmHg LVOT Mean Gradient 3 mmHg LVOT VTI 22 cm LVOT VTI/AV VTI Ratio 0.9 LVOT Stroke Volume 80 ml LVOT CO 5.3 l/min LVOT CI 2.4 l/min/m2 Pulmonic Valve Name Value Normal PV Doppler PV Peak Velocity 96 cm/s PV Peak Gradient 4 mmHg Mitral Valve Name Value Normal MV Doppler MV Peak Gradient 4 mmHg MV Mean Gradient 2 mmHg MV Area (Cont Eq VTI) 3.0 cm2 MV Diastolic Function MV E Peak Velocity 104 cm/s MV A Peak Velocity 96 cm/s MV E/A 1.1 MV Decel Time (PW) 172 ms Tricuspid Valve Name Value Normal Estimated PAP/RSVP RA Pressure 5 mmHg <=5 TV Annular TDI TV Lateral Yessica s' Velocity 13.1 cm/s >=9.5 Aortic Valve Name Value Normal AV Doppler AV Peak Velocity 128 cm/s AV Peak Gradient 7 mmHg AV Mean Gradient 4 mmHg AV VTI 23 cm AV Area (Cont Eq VTI) 3.4 cm2 >=3.0 AV Area (Cont Eq Braeden) 3.3 cm2 AV DI (Braeden) 0.89 AV Regurgitation 2D LVOT Area 3.7 cm2 Ventricles Name Value Normal LV Dimensions 2D/MM IVS Diastolic Thickness (2D) 0.7 cm 0.6-1.0 LVID Diastole (2D) 5.3 cm 4.2-5.8 LVIW Diastolic Thickness (2D) 1.0 cm 0.6-1.0 LVID Systole (2D) 3.8 cm 2.5-4.0 LVOT Diameter 2.2 cm LV Mass (2D Cubed) 162.83 g 88.00-224.00 LV Mass Index (2D Cubed) 73 g/m2 49-115 Relative Wall Thickness (2D) 0.38 <=0.42 LV Fractional Shortening/Ejection Fraction 2D/MM LV Fractional Shortening (2D) 27 % 25-43 LV EF (2D Teichholz) 53 % LV Diastolic Volume (4C MOD) 119 ml LV EF (4C MOD) 63 % LV Diastolic Volume (2C MOD) 109 ml LV EF (2C MOD) 54 % LV Diastolic Volume (BP MOD) 112 ml 62-150 LV Diastolic Volume Index (BP MOD) 50 ml/m2 34-74 LV Systolic Volume (BP MOD) 60 ml 21-61 LV Systolic Volume Index (BP MOD) 27 ml/m2 11-31 LV EF (BP MOD) 46 % 52-72 LV Diastolic Length (4C) 7.5 cm LV Systolic Length (4C) 5.9 cm LV Stroke Volume (4C MOD) 75 ml Atria Name Value Normal LA Dimensions LA Volume (4C A-L) 45 ml LA Volume (BP A-L) 47 ml RA Dimensions RA Area (4C) 16.6 cm2 <=18.0 Report Signatures
[2025-02-07] MEDS: ENOXAPARIN 100 MG/ML SYRINGE SUB-Q ×2 (00:40→11:35)
[2025-02-07] MEDS: MORPHINE SULFATE (*CRX) 4 MG/ML INJ 2 MG IV PUSH (00:47)
[2025-02-07 04:45] LABS: Hematocrit 39.7 % (42.0-52.0); Hemoglobin 13.4 g/dL (14.0-18.0); Mean Corpuscular HGB Conc 33.8 g/dl (32-36); Mean Corpuscular Hemoglobin 28.8 pg (26-34); Mean Corpuscular Volume 85.2 fl (80-100); Platelet Count Result 336 k/mm3 (150-375); Red Blood Count 4.66 M/mm3 (4.6-6.20); White Blood Count 5.3 K/mm3 (4.5-10.0)
[2025-02-07 05:05] LABS: Anion Gap 7 mmol/L (4-12); Blood Urea Nitrogen 18 mg/dL (9-20); Calcium 8.6 mg/dL (8.4-10.2); Carbon Dioxide 27 mmol/L (22-30); Chloride 102 mmol/L (98-107); Estimated CRCL calculation 80 ml/min; Estimated Glomerular Filt Rate > 60; Glucose 154 mg/dL (65-110); Magnesium 2.0 mg/dL (1.6-2.3); Potassium 3.7 mmol/L (3.4-5.0); Sodium 136 mmol/L (137-145)
--- NOTE | 2025-02-07 11:30 | EST_ITS ---
Patient Info Name: Ascencion Alexandre Age: 44 years : 1980 Gender: Male Ht: 70 in Wt: 212 lbs BSA: 2.20 m2 HR: 67 bpm BP: 100 / 79 mmHg Exam Date: 02/07/2025 11:30 AM Patient Status: O Admit Date: 02/06/2025 Exam Type: CA stress daryn w NM A regadenoson stress test was performed. Staff Referring Physician: Sidney Blackmon Attending Provider: Trinity Menon Exercise Technologist: Amanda Sr Exercise Physician: David Martin Summary 1. Please correlate with nuclear medicine images, reported separately. 2. No abnormal ST-T wave changes with lexiscan. 3. Interpreting Physician: Dr. Grover. Protocol: Lexiscan Stress ECG Details Stage: REST Duration (min): 1 min : 19 sec HR (bpm): 67 SBP (mmHg): 100 DBP (mmHg): 79 Stage: REST Duration (min): 10 min : 16 sec HR (bpm): 80 SBP (mmHg): 100 DBP (mmHg): 79 Stage: STAGE 1 Duration (min): 1 min : 0 sec HR (bpm): 128 SBP (mmHg): 102 DBP (mmHg): 63 Stage: RECOVERY Duration (min): 1 min : 0 sec HR (bpm): 114 SBP (mmHg): 102 DBP (mmHg): 63 Stage: RECOVERY Duration (min): 2 min : 0 sec HR (bpm): 102 SBP (mmHg): 102 DBP (mmHg): 63 Stage: RECOVERY Duration (min): 3 min : 0 sec HR (bpm): 103 SBP (mmHg): 109 DBP (mmHg): 67 Stage: RECOVERY Duration (min): 4 min : 0 sec HR (bpm): 98 SBP (mmHg): 109 DBP (mmHg): 67 Stage: RECOVERY Duration (min): 5 min : 0 sec HR (bpm): 94 SBP (mmHg): 132 DBP (mmHg): 72 Stage: RECOVERY Duration (min): 5 min : 2 sec HR (bpm): 93 SBP (mmHg): 132 DBP (mmHg): 72 Rest HR: 80 bpm Peak HR: 131 bpm Rest Sys BP: 100 mmHg Peak Sys BP: 132 mmHg Max Pred HR: 174 bpm % Max Pred HR: 75 % Target HR: 148 bpm Max RPP: 17,292 bpm*mmHg Target HR Summary: Hemodynamic response to exercise was normal BP Response: Normal blood pressure response Termination Reason: Completed protocol Cardiac Symptoms: None Total Time: 1 min : 0 sec Rest Herrera BP: 79 mmHg Peak Herrera BP: 72 mmHg Total Dose: 0.4 mg Resting ECG Normal sinus rhythm. Stress ECG No abnormal ST/T wave changes with Lexiscan. Arrhythmias Occasional PVCs. Report Signatures
--- NOTE | 2025-02-07 11:31 | PM.PNCARD ---
Progress Note: A&P Assessment and Plan (1) Chest tightness: Code(s): R07.89 - Other chest pain Status: Acute (2) History of angioplasty: Code(s): Z98.62 - Peripheral vascular angioplasty status Status: Acute (3) Hypertension: Code(s): I10 - Essential (primary) hypertension Status: Acute (4) Hyperlipidemia: Code(s): E78.5 - Hyperlipidemia, unspecified Status: Acute Plan Impression: 1. Patient with known history of coronary artery disease now presents with substernal chest pain. Cardiac enzymes are mildly increased at 0.1 but with flat trend. History of angioplasty of the LAD on 01/23/2025 subsequently angioplasty of the obtuse marginal branch 2 on 01/26/2025. Etiology of his chest pain is unclear artery occlusion cannot be entirely excluded. EKG does not show acute ST changes. Differential diagnosis may also include pericarditis. EKG does not show significant changes. 2. Significant risk factors including history of hypertension hyperlipidemia and type 2 diabetes. Recommendations: #. So far stable EKG and cardiac enzymes. Episode of chest pain yesterday evening with negative EKG and cardiac enzymes are trending down. #. Currently blood pressure blood pressure 113/80 and heart rate is 68 per minute Current medications reviewed. Continue with aspirin 81 mg daily, Plavix 75 mg daily, atorvastatin 80 mg at bedtime, DC IV heparin and continue with subQ full-dose Lovenox. Continue colchicine 0.6 mg b.i.d. #. Echocardiogram to evaluate for wall motion abnormalities. #. Nuclear stress test completed today. #. Start patient on ibuprofen 400 mg t.i.d. as needed for chest pain. Sed rate is normal at 16 and C-reactive protein is less than 0.05. Inflammatory markers are negative and therefore less likely subacute pericarditis. Okay to discharge patient home if negative do myocardial perfusion scan on current medication. Continue colchicine for 6 weeks and ibuprofen as needed. Subjective Date/time seen: 02/07/25 11:31 Interval history: Review of HPI; 44 years old male admitted via emergency room on 02/05/2025 with complaints of chest pain Patient has past medical history significant for history of hypertension, hyperlipidemia and obesity. Patient has known history of coronary disease with stent placed in LAD in 01/23/2025. Subsequently patient was admitted at [facility] had a 2nd stent placed in the OM 2 on 01/26/2025. Previous echocardiogram has shown systolic function estimated at 40%. Previous history of possible pericarditis treated with colchicine. No associated fever or chills. No complaints of shortness of breath. EKG performed on admission revealed normal sinus rhythm with heart rate of 67 per minute and no acute ST or T-wave changes. No suggestion of pericarditis. Admitting blood pressure was 139/94. Heart rate was 79 per minute with regular rhythm and patient was afebrile. Admitting laboratory data revealed WBC count 6.3, hemoglobin 14.1, platelets are normal. Sodium 135, potassium is 4.0, BUN is 14, creatinine is 1.0. LFTs are normal. ProBNP was 72. Admitting troponin was 0.0120. Subsequent troponin was 0.129. Overall trend is flat without suggestion for acute coronary syndrome. Subjective; Patient was examined at the bedside. Patient is awake alert and appears comfortable without shortness of breath or chest pain. Nuclear stress test completed today. Patient had some chest pain last evening and subsequent EKG did not show any acute changes and cardiac enzymes were negative. Review of Systems Review of Systems: Twelve point review of system was completed. Pertinent positive and negative findings per HPI. Exam Narrative: Patient was examined at the bedside. Patient is awake alert appears comfortable without shortness of breath. Oriented x3. Well built and well nourished. Mildly obese with BMI of 30.3. Head and neck examination is unremarkable. Head is atraumatic. Sclerae is nonicteric. ENT examination is negative. Neck is supple. There is no JVD or carotid bruit. Thyroid is not enlarged. There is no cervical lymphadenopathy. Lungs are clear to auscultation percussion. There is no wheezing or crepitation. Heart sounds reveal normal S1-S2. Rhythm is regular. There is no significant murmurs. There is no S3 or S4. Abdomen is soft nontender. There is no hepatosplenomegaly. Bowel sounds are present. Extremities revealed no pedal edema. Neurological examination is intact. Psych is intact Skin and musculoskeletal negative Objective Data Vital Signs Vital Signs: Vital Signs - 24 hr 02/06/25 11:40 02/06/25 12:00 02/06/25 12:00 Temperature 36.7 C Pulse Rate 70 55 L Respiratory Rate 20 Blood Pressure 109/77 Pulse Oximetry 98 Oxygen Delivery Room Air Fraction of Inspired Oxygen 02/06/25 14:00 02/06/25 16:00 02/06/25 16:00 Temperature 36.7 C Pulse Rate 82 75 Respiratory Rate 18 Blood Pressure 104/60 Pulse Oximetry 99 Oxygen Delivery Room Air Fraction of Inspired Oxygen 02/06/25 16:00 02/06/25 18:00 02/06/25 20:00 Temperature 36.8 C Pulse Rate 59 L 96 68 Respiratory Rate 14 Blood Pressure 109/63 Pulse Oximetry 98 Oxygen Delivery Fraction of Inspired Oxygen 02/06/25 20:00 02/06/25 20:00 02/06/25 20:21 Temperature Pulse Rate 58 L Respiratory Rate Blood Pressure Pulse Oximetry 97 Oxygen Delivery Room Air Room Air Fraction of Inspired Oxygen 21 02/06/25 22:00 02/07/25 00:00 02/07/25 00:00 Temperature 36.5 C Pulse Rate 62 64 Respiratory Rate 20 Blood Pressure 111/69 Pulse Oximetry 97 Oxygen Delivery Room Air Fraction of Inspired Oxygen 02/07/25 00:00 02/07/25 02:00 02/07/25 04:00 Temperature Pulse Rate 59 L 66 Respiratory Rate Blood Pressure Pulse Oximetry Oxygen Delivery Room Air Fraction of Inspired Oxygen 02/07/25 04:00 02/07/25 04:00 02/07/25 06:00 Temperature 36.6 C Pulse Rate 61 61 56 L Respiratory Rate 16 Blood Pressure 107/64 Pulse Oximetry 98 Oxygen Delivery Fraction of Inspired Oxygen 02/07/25 07:49 02/07/25 08:00 Temperature 36.6 C Pulse Rate 68 Respiratory Rate 16 Blood Pressure 113/80 Pulse Oximetry 98 Oxygen Delivery Room Air Fraction of Inspired Oxygen Intake/Output Intake/Output: Intake & Output 02/04/25 02/05/25 02/06/25 02/07/25 23:59 23:59 23:59 23:59 Intake Total 585.5 600 Output Total 2 Balance 585.5 598 Meds/Results Medications: Active Medications Generic Name Dose Route Start Last Admin Trade Name Freq PRN Reason Stop Dose Admin Acetaminophen 650 mg 02/06/25 00:07 02/06/25 14:44 Acetaminophen 325 Mg Tablet PO 650 mg Q4H PRN Administration Mild Pain (1-3) or Fever Aspirin 81 mg 02/06/25 09:00 02/06/25 08:40 Aspirin 81 Mg Enteric Tablet PO 81 mg DAILY BREE Administration Atorvastatin Calcium 80 mg 02/06/25 09:00 02/06/25 08:40 Atorvastatin 40 Mg Tablet PO 80 mg QAM BREE Administration Clopidogrel Bisulfate 75 mg 02/06/25 09:00 02/06/25 08:40 Clopidogrel Bisulfate 75 Mg Tablet PO 75 mg DAILY BREE Administration Colchicine 0.6 mg 02/06/25 11:45 02/06/25 20:42 Colchicine 0.6 Mg Tablet PO 0.6 mg Q12HR BREE Administration Enoxaparin Sodium 100 mg 02/06/25 12:00 02/07/25 00:40 Enoxaparin 100 Mg/Ml Syringe SUB-Q 100 mg Q12H BREE Administration Heparin Sodium (Porcine) 4,000 units 02/05/25 23:56 Heparin Sodium 5,000 Units/Ml Vial IV PUSH PRN PRN aPTT less than 55 seconds Heparin Sodium (Porcine) 3,500 units 02/05/25 23:56 Heparin Sodium 5,000 Units/Ml Vial IV PUSH PRN PRN aPTT 55 - 70 seconds Morphine Sulfate 2 mg 02/06/25 03:44 02/07/25 00:47 Morphine Sulfate (*Crx) 4 Mg/Ml Inj IV PUSH 2 mg Q4H PRN Administration Pain Rated 7-10 Ondansetron HCl 4 mg 02/06/25 00:07 Ondansetron Inj 4 Mg/2 Ml Vial IV PUSH Q4H PRN Nausea Pantoprazole Sodium 40 mg 02/06/25 09:00 02/06/25 20:42 Pantoprazole 40 Mg Tablet PO 40 mg Q12HR BREE Administration Perflutren Lipid Microsphere 0 ml 02/06/25 00:04 Perflutren Lipid Microspheres 1.5 Ml Vial Diluted To 10 Ml Total Volume IV PUSH 02/09/25 00:04 ONCE PRN adequate visualization Protocol Radiology Results: ITS Impressions Chest X-Ray 02/06/25 06:09 IMPRESSION: 1. No acute cardiopulmonary findings. Chest CTA 02/06/25 13:08 IMPRESSION: 1. No PE or other acute cardiopulmonary findings. Lexiscan Stress Test 02/07/25 10:16 IMPRESSION: 1. Small focus of mild decreased activity at the apical lateral segment on the non gated post stress imaging which changes slightly in position on the post stress imaging obtained in the prone position and which appears to normalize on the gated post stress imaging which would favor artifact over ischemia. No other definitive myocardial perfusion defects at rest and during stress to suggest ischemia or infarct.. 2. Borderline left ventricular ejection fraction measuring 46%. Labs Labs: Laboratory Results - last 24 hr 02/06/25 02/06/25 02/06/25 13:12 13:32 14:58 WBC RBC Hgb Hct MCV MCH MCHC RDW Plt Count MPV ESR 16 APTT 66.4 H Sodium Potassium Chloride Carbon Dioxide Anion Gap BUN Creatinine Estim Creat Clear Calc Estimated GFR Glucose Calcium Magnesium Troponin I 0.109 H* C-Reactive Protein < 0.5 02/06/25 02/06/25 02/07/25 17:41 21:04 04:00 WBC 5.3 RBC 4.66 Hgb 13.4 L Hct 39.7 L MCV 85.2 MCH 28.8 MCHC 33.8 RDW 11.9 Plt Count 336 MPV 9.2 ESR APTT Sodium 136 L Potassium 3.7 Chloride 102 Carbon Dioxide 27 Anion Gap 7 BUN 18 Creatinine 1.19 Estim Creat Clear Calc 80 Estimated GFR > 60 Glucose 154 H Calcium 8.6 Magnesium 2.0 Troponin I 0.102 H* 0.099 H* C-Reactive Protein
[2025-02-07] MEDS: CLOPIDOGREL BISULFATE 75 MG TABLET PO (11:35)
[2025-02-07] MEDS: ASPIRIN 81 MG ENTERIC TABLET PO (11:35)
[2025-02-07] MEDS: ATORVASTATIN 40 MG TABLET 80 MG PO (11:35)
[2025-02-07] MEDS: COLCHICINE 0.6 MG TABLET PO ×2 (11:35→20:56)
[2025-02-07] MEDS: PANTOPRAZOLE 40 MG TABLET PO ×2 (11:35→20:56)
[2025-02-07] MEDS: PERFLUTREN LIPID MICROSPHERES 1.5 ML VIAL DILUTED TO 10 ML TOTAL VOLUME IV PUSH (11:57)
--- NOTE | 2025-02-07 11:57 | IVDEFINITY ---
Prior to administration of IV Definity the patient was educated on the risks and benefits of the imaging enhancing agent including potential adverse side effects. The patient verbalized understanding. Allergies were verified. No exclusion criteria were identified and at least one of the following inclusion criteria were met: 1) physician request, 2) patient technically difficult to image (per the [place] [employer] guidelines of two or more segments not discernable within the apical view), or 3) questionable left ventricular function. ?
--- NOTE | 2025-02-07 14:13 | PM.IMPN ---
Progress Note: A&P Assessment and Plan (1) Non-ST elevation ND (NSTEMI): Code(s): I21.4 - Non-ST elevation (NSTEMI) myocardial infarction Status: Acute Assessment and Plan: -patient's troponin are flat. Initial troponin is 0.121 with 3 hour repeat of 0.120. -awaiting 3rd set of troponin. Patient has recent cardiac with PCI about 2 weeks ago -CTA pulmonary no acute cardiopulmonary changes -echo pending Lexiscan showed possible ischemia Continue Aspirin, Lipitor and Plavix Cardiology following (2) Hypertension: Code(s): I10 - Essential (primary) hypertension Status: Acute Assessment and Plan: -his highest blood pressure was 147/98 in the emergency room. His blood pressure is now 109/77 after morphine. -may consider metoprolol. (3) Hyperlipidemia: Code(s): E78.5 - Hyperlipidemia, unspecified Status: Acute Assessment and Plan: -continue with atorvastatin. -he stated that his cholesterol has only been mildly elevated and his LDLs had been elevated as well. Plan DVT prophylaxis on Sq heparin Subjective Date/time seen: 02/07/25 14:13 Interval history: Comfortable at bedside Review of Systems Constitutional: Constitutional: Reports as per HPI and Reports no additional constitutional complaints Eyes: Eyes: Reports as per HPI and Reports no additional eye complaints ENT: Reports system reviewed and no additional complaints, except as documented and Reports Normal hearing present Cardiovascular: Cardiovascular: Reports no additional cardiovascular complaints Respiratory: Respiratory: Reports as per HPI and Reports no additional respiratory complaints Gastrointestinal: Gastrointestinal: Reports as per HPI and Reports no additional gastrointestinal complaints Musculoskeletal: Musculoskeletal: Reports no additional musculoskeletal complaints Integumentary/Breasts: Skin/Breast: Reports system reviewed and no additional complaints, except as docu Neurologic: Reports system reviewed and no additional complaints, except as documented and Reports Normal hearing present Psychiatric: Psychiatric: Reports no additional psychiatric complaints and Reports as per HPI Hematologic/Lymphatic: Hematologic/Lymphatic: Reports no additional hematologic/lymphatic complaints Allergic/Immunologic: Allergic/Immunologic: Reports no additional allergic/immunologic complaints Exam Const: General: cooperative, healthy appearing, no acute distress, well developed, awake, Physically active, average body habitus and well nourished Nutritional Appearance: average body habitus and well nourished Orientation/consciousness: oriented to person, oriented to place, oriented to time and patient oriented x3 Limitations: no limitations HENMT: Head: normal to inspection, No palpable skull fracture present, normocephalic, atraumatic and abrasion Ears: hearing grossly normal bilaterally Eyes: General: appearance normal, both eyes and all related structures Alignment and Position: alignment normal Periorbital: periorbital findings normal Eyelids: eyelids normal Pupils: Equal, round and reactive pupils present Neck: Neck: normal visual inspection and full ROM Chest: Chest palpation & inspection: normal inspection of the chest Resp: Effort & Inspection: normal respiratory effort Auscultation: clear to auscultation bilaterally Cardio: Palpation: normal PMI Rate: regular rate Rhythm: regular rhythm Heart sounds: S1 normal heart sound present and S2 normal heart sound present Peripheral pulses: Peripheral pulses 2+ throughout GI: Inspection: normal to inspection Auscultation: normal bowel sounds Rectal Exam: deferred : General: Yes no CVA tenderness Back/Spine/Pelvis: Back: no CVA tenderness Skin: General skin exam: normal color Lesions: no lesions Rashes: no rashes Trauma: no lacerations or abrasions Wounds: no wounds Hair: normal Nails: normal Neuro: General: oriented to person, oriented to place, oriented to time and patient oriented x3 Cranial nerves: Yes Equal, round and reactive pupils present and Yes Normal hearing present Cognition (Neuro): normal cognition Speech: normal speech Gait exam (Neuro): Normal gait present Motor exam (neuro): 5/5 motor strength present throughout Sensory Exam: normal sensation Extrem: General: normal to inspection Right upper extremity: normal to inspection and shoulder/upper arm Left upper extremity: normal to inspection and shoulder/upper arm Right lower extremity: normal to inspection Left lower extremity: normal to inspection Psych: Appearance: grossly normal Mental Status: mental status grossly normal Speech and movement: Normal speech and movement present Affect: normal affect Attitude: cooperative Thought process: Normal thought process present Insight: Good insight present (Psych) Judgement: Good judgement present (Psych) Objective Data Vital Signs Vital Signs: Vital Signs - 24 hr 02/06/25 16:00 02/06/25 16:00 02/06/25 16:00 Temperature 98.1 F Pulse Rate 75 59 L Respiratory Rate 18 Blood Pressure 104/60 Pulse Oximetry 99 Oxygen Delivery Room Air Fraction of Inspired Oxygen 02/06/25 18:00 02/06/25 20:00 02/06/25 20:00 Temperature 98.2 F Pulse Rate 96 68 58 L Respiratory Rate 14 Blood Pressure 109/63 Pulse Oximetry 98 Oxygen Delivery Fraction of Inspired Oxygen 02/06/25 20:00 02/06/25 20:21 02/06/25 22:00 Temperature Pulse Rate 62 Respiratory Rate Blood Pressure Pulse Oximetry 97 Oxygen Delivery Room Air Room Air Fraction of Inspired Oxygen 21 02/07/25 00:00 02/07/25 00:00 02/07/25 00:00 Temperature 97.7 F Pulse Rate 64 59 L Respiratory Rate 20 Blood Pressure 111/69 Pulse Oximetry 97 Oxygen Delivery Room Air Fraction of Inspired Oxygen 02/07/25 02:00 02/07/25 04:00 02/07/25 04:00 Temperature Pulse Rate 66 61 Respiratory Rate Blood Pressure Pulse Oximetry Oxygen Delivery Room Air Fraction of Inspired Oxygen 02/07/25 04:00 02/07/25 06:00 02/07/25 07:49 Temperature 98 F 98 F Pulse Rate 61 56 L 68 Respiratory Rate 16 16 Blood Pressure 107/64 113/80 Pulse Oximetry 98 98 Oxygen Delivery Fraction of Inspired Oxygen 02/07/25 08:00 02/07/25 12:00 02/07/25 12:00 Temperature 97.4 F L Pulse Rate 78 Respiratory Rate 18 Blood Pressure 135/80 Pulse Oximetry 97 Oxygen Delivery Room Air Room Air Fraction of Inspired Oxygen Intake/Output Intake/Output: Intake & Output 02/04/25 02/05/25 02/06/25 02/07/25 23:59 23:59 23:59 23:59 Intake Total 585.5 920 Output Total 2 Balance 585.5 918 Meds/Results Medications: Active Medications Generic Name Dose Route Start Last Admin Trade Name Freq PRN Reason Stop Dose Admin Acetaminophen 650 mg 02/06/25 00:07 02/06/25 14:44 Acetaminophen 325 Mg Tablet PO 650 mg Q4H PRN Administration Mild Pain (1-3) or Fever Aspirin 81 mg 02/06/25 09:00 02/07/25 11:35 Aspirin 81 Mg Enteric Tablet PO 81 mg DAILY BREE Administration Atorvastatin Calcium 80 mg 02/06/25 09:00 02/07/25 11:35 Atorvastatin 40 Mg Tablet PO 80 mg QAM BREE Administration Clopidogrel Bisulfate 75 mg 02/06/25 09:00 02/07/25 11:35 Clopidogrel Bisulfate 75 Mg Tablet PO 75 mg DAILY BREE Administration Colchicine 0.6 mg 02/06/25 11:45 02/07/25 11:35 Colchicine 0.6 Mg Tablet PO 0.6 mg Q12HR BREE Administration Enoxaparin Sodium 100 mg 02/06/25 12:00 02/07/25 11:35 Enoxaparin 100 Mg/Ml Syringe SUB-Q 100 mg Q12H BREE Administration Heparin Sodium (Porcine) 4,000 units 02/05/25 23:56 Heparin Sodium 5,000 Units/Ml Vial IV PUSH PRN PRN aPTT less than 55 seconds Heparin Sodium (Porcine) 3,500 units 02/05/25 23:56 Heparin Sodium 5,000 Units/Ml Vial IV PUSH PRN PRN aPTT 55 - 70 seconds Morphine Sulfate 2 mg 02/06/25 03:44 02/07/25 00:47 Morphine Sulfate (*Crx) 4 Mg/Ml Inj IV PUSH 2 mg Q4H PRN Administration Pain Rated 7-10 Ondansetron HCl 4 mg 02/06/25 00:07 Ondansetron Inj 4 Mg/2 Ml Vial IV PUSH Q4H PRN Nausea Pantoprazole Sodium 40 mg 02/06/25 09:00 02/07/25 11:35 Pantoprazole 40 Mg Tablet PO 40 mg Q12HR BREE Administration Radiology Results: ITS Impressions Chest X-Ray 02/06/25 06:09 IMPRESSION: 1. No acute cardiopulmonary findings. Chest CTA 02/06/25 13:08 IMPRESSION: 1. No PE or other acute cardiopulmonary findings. Lexiscan Stress Test 02/07/25 10:16 IMPRESSION: 1. Small focus of mild decreased activity at the apical lateral segment on the non gated post stress imaging which changes slightly in position on the post stress imaging obtained in the prone position and which appears to normalize on the gated post stress imaging which would favor artifact over ischemia. No other definitive myocardial perfusion defects at rest and during stress to suggest ischemia or infarct.. 2. Borderline left ventricular ejection fraction measuring 46%. Labs Labs: Laboratory Results - last 24 hr 02/06/25 02/06/25 02/06/25 14:58 17:41 21:04 WBC RBC Hgb Hct MCV MCH MCHC RDW Plt Count MPV Sodium Potassium Chloride Carbon Dioxide Anion Gap BUN Creatinine Estim Creat Clear Calc Estimated GFR Glucose Calcium Magnesium Troponin I 0.109 H* 0.102 H* 0.099 H* 02/07/25 04:00 WBC 5.3 RBC 4.66 Hgb 13.4 L Hct 39.7 L MCV 85.2 MCH 28.8 MCHC 33.8 RDW 11.9 Plt Count 336 MPV 9.2 Sodium 136 L Potassium 3.7 Chloride 102 Carbon Dioxide 27 Anion Gap 7 BUN 18 Creatinine 1.19 Estim Creat Clear Calc 80 Estimated GFR > 60 Glucose 154 H Calcium 8.6 Magnesium 2.0 Troponin I Quality VTE Prophylaxis VTE prophylaxis: pharmacologic ordered
--- NOTE | 2025-02-07 15:04 | PM.EVENT ---
Event Note Event Note Event Note: Code stroke called for visual loss which was angus jorge noted he was reading when he noticed loss of vision of the right upper side of his visual field. On further questioning he described it partial viaual loss Otherwise denies any other focal deficits and Showed visual deficit on left upper visual field on confrontation exam CT head, CTA head and neck and Neurology consulted continue DAPT and Statin monitor
--- NOTE | 2025-02-07 17:25 | ECG_ITS ---
Test Date: 2025-02-07 17:31:06 Measurements Intervals [place] Rate: 75 P: 44 HI: 170 QRS: -34 QRSD: 98 T: 12 QT: 377 QTc: 421 Interpretive Statements SINUS RHYTHM LEFT AXIS DEVIATION CANNOT R/O SEPTAL INFARCT, AGE INDETERMINATE VOLTAGE CRITERIA FOR LVH BASELINE ARTIFACT- AVR, AVL, AVF, V2-V3 ABNORMAL ECG Compared to ECG 02/06/2025 14:14:40 NO SIGNIFICANT CHANGE Electronically Signed On 02-07-2025 19:17:13 CDT by Sandeep Liang D.O.
[2025-02-08] VITALS (14 sets, daily range): BP systolic 112–135; BP diastolic 73–86; PULSE 61–88; RESP 14–20; TEMP 36.4–36.8; O2SAT 96–100
[2025-02-08 04:14] LABS: Hematocrit 40.3 % (42.0-52.0); Hemoglobin 13.9 g/dL (14.0-18.0); Immature Granulocyte Percent A 0.3 % (0-0.5); Lymphocytes Absolute Auto 2.15 K/mm3 (0.9-3.2); Mean Corpuscular HGB Conc 34.5 g/dl (32-36); Mean Corpuscular Hemoglobin 29.0 pg (26-34); Mean Corpuscular Volume 84.0 fl (80-100); Nucleated Red Blood Cells Absolute Auto 0.000 K/mm3 (0.0-0.012); Nucleated Red Blood Cells Perc 0.0 % (0.0-0.2); Platelet Count Result 340 k/mm3 (150-375); Red Blood Count 4.80 M/mm3 (4.6-6.20); White Blood Count 5.8 K/mm3 (4.5-10.0)
[2025-02-08 04:34] LABS: Alanine Aminotransferase 56 U/L (6-50); Albumin Level 3.6 g/dL (3.5-5.1); Alkaline Phosphatase 59 U/L (38-126); Anion Gap 6 mmol/L (4-12); Aspartate Amino Transferase 45 U/L (17-59); Bilirubin,Total 0.4 mg/dL (0.2-1.3); Blood Urea Nitrogen 14 mg/dL (9-20); Calcium 8.7 mg/dL (8.4-10.2); Carbon Dioxide 27 mmol/L (22-30); Chloride 104 mmol/L (98-107); Estimated CRCL calculation 98 ml/min; Estimated Glomerular Filt Rate > 60; Glucose 141 mg/dL (65-110); Magnesium 2.1 mg/dL (1.6-2.3); Potassium 3.6 mmol/L (3.4-5.0); Sodium 137 mmol/L (137-145); Total Protein 6.1 g/dL (6.3-8.2)
--- NOTE | 2025-02-08 08:08 | PM.IMPN ---
Progress Note: A&P Assessment and Plan (1) Non-ST elevation AR (NSTEMI): Code(s): I21.4 - Non-ST elevation (NSTEMI) myocardial infarction Status: Acute Assessment and Plan: -patient's troponin are flat. Initial troponin is 0.121 with 3 hour repeat of 0.120. -awaiting 3rd set of troponin. Patient has recent cardiac with PCI about 2 weeks ago -CTA pulmonary no acute cardiopulmonary changes -echo left ventricular ejection fraction 45-50% Lexiscan showed possible ischemia Continue Aspirin, Lipitor and Plavix Cardiology following 02/08: SAKINA and MRI pending As per cardiology med surge to Eliquis, Plavix and aspirin as long as tolerated. Aspirin could be discontinued after 4 weeks of angioplasty. (2) Hypertension: Code(s): I10 - Essential (primary) hypertension Status: Acute Assessment and Plan: -his highest blood pressure was 147/98 in the emergency room. His blood pressure is now 109/77 after morphine. -may consider metoprolol. (3) Hyperlipidemia: Code(s): E78.5 - Hyperlipidemia, unspecified Status: Acute Assessment and Plan: -continue with atorvastatin. -he stated that his cholesterol has only been mildly elevated and his LDLs had been elevated as well. (4) CVA (cerebral vascular accident): Code(s): I63.9 - Cerebral infarction, unspecified Status: Acute Assessment and Plan: MRI shows no significant finding Yesterday patient had brief left vision loss, right arm and facial numbness Dr. Ramos was contacted for agreed that since patient does not have any significant finding on CTA continue to observe and no need for tPA. Plan DVT prophylaxis on Sq heparin Subjective Date/time seen: 02/08/25 08:08 Interval history: The patient was evaluated at the bedside. 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 The patient was generally healthy, except for eosinophilic esophagitis, which was diagnosed in 2013. As per the patient, he returned from a fishing trip with the cannula and had dizziness, which was diagnosed as increased RBC, and he was advised to give a blood donation to help with symptoms. Unfortunately, it did not help, and the patient was experiencing shortness of breath and chest pain, which prompted him to visit his son at [place] on January 21. Was transferred from [facility] to [facility]. Patient underwent cardiac catheterization on the . Patient reports he was experiencing chest pain even during the cardiac catheterization procedure. The patient was in the recovery room and was still experiencing chest pain and was given nitro x2, and his blood pressure was dropped. Rapid response was called. The patient was later transferred to [facility], where he had the second stent. The patient was again having chest pain and came to the [place] ED. MRI shows no significant finding and SAKINA pending. Review of Systems Constitutional: Constitutional: Reports as per HPI and Reports no additional constitutional complaints Eyes: Eyes: Reports as per HPI and Reports no additional eye complaints ENT: Reports system reviewed and no additional complaints, except as documented and Reports Normal hearing present Cardiovascular: Cardiovascular: Reports no additional cardiovascular complaints Respiratory: Respiratory: Reports as per HPI and Reports no additional respiratory complaints Gastrointestinal: Gastrointestinal: Reports as per HPI and Reports no additional gastrointestinal complaints Musculoskeletal: Musculoskeletal: Reports no additional musculoskeletal complaints Integumentary/Breasts: Skin/Breast: Reports system reviewed and no additional complaints, except as docu Neurologic: Reports system reviewed and no additional complaints, except as documented and Reports Normal hearing present Psychiatric: Psychiatric: Reports no additional psychiatric complaints and Reports as per HPI Hematologic/Lymphatic: Hematologic/Lymphatic: Reports no additional hematologic/lymphatic complaints Allergic/Immunologic: Allergic/Immunologic: Reports no additional allergic/immunologic complaints Exam Const: General: cooperative, healthy appearing, no acute distress, well developed, awake, Physically active, average body habitus and well nourished Nutritional Appearance: average body habitus and well nourished Orientation/consciousness: oriented to person, oriented to place, oriented to time and patient oriented x3 Limitations: no limitations HENMT: Head: normal to inspection, No palpable skull fracture present, normocephalic, atraumatic and abrasion Ears: hearing grossly normal bilaterally Eyes: General: appearance normal, both eyes and all related structures Alignment and Position: alignment normal Periorbital: periorbital findings normal Eyelids: eyelids normal Pupils: Equal, round and reactive pupils present Neck: Neck: normal visual inspection and full ROM Chest: Chest palpation & inspection: normal inspection of the chest Resp: Effort & Inspection: normal respiratory effort Auscultation: clear to auscultation bilaterally Cardio: Palpation: normal PMI Rate: regular rate Rhythm: regular rhythm Heart sounds: S1 normal heart sound present and S2 normal heart sound present Peripheral pulses: Peripheral pulses 2+ throughout GI: Inspection: normal to inspection Auscultation: normal bowel sounds Rectal Exam: deferred : General: Yes no CVA tenderness Back/Spine/Pelvis: Back: no CVA tenderness Skin: General skin exam: normal color Lesions: no lesions Rashes: no rashes Trauma: no lacerations or abrasions Wounds: no wounds Hair: normal Nails: normal Neuro: General: oriented to person, oriented to place, oriented to time and patient oriented x3 Cranial nerves: Yes Equal, round and reactive pupils present and Yes Normal hearing present Cognition (Neuro): normal cognition Speech: normal speech Gait exam (Neuro): Normal gait present Motor exam (neuro): 5/5 motor strength present throughout Sensory Exam: normal sensation Extrem: General: normal to inspection Right upper extremity: normal to inspection and shoulder/upper arm Left upper extremity: normal to inspection and shoulder/upper arm Right lower extremity: normal to inspection Left lower extremity: normal to inspection Psych: Appearance: grossly normal Mental Status: mental status grossly normal Speech and movement: Normal speech and movement present Affect: normal affect Attitude: cooperative Thought process: Normal thought process present Insight: Good insight present (Psych) Judgement: Good judgement present (Psych) Objective Data Vital Signs Vital Signs: Vital Signs - 24 hr 02/07/25 10:00 02/07/25 12:00 02/07/25 12:00 Temperature 97.4 F L Pulse Rate 75 78 Respiratory Rate 18 Blood Pressure 135/80 Pulse Oximetry 97 Oxygen Delivery Room Air 02/07/25 12:00 02/07/25 14:00 02/07/25 16:00 Temperature 97.9 F Pulse Rate 70 76 76 Respiratory Rate 16 Blood Pressure 120/81 Pulse Oximetry 97 Oxygen Delivery 02/07/25 16:00 02/07/25 16:00 02/07/25 18:00 Temperature Pulse Rate 78 76 Respiratory Rate Blood Pressure Pulse Oximetry Oxygen Delivery Room Air 02/07/25 20:00 02/07/25 20:00 02/07/25 20:00 Temperature 98.0 F Pulse Rate 72 68 Respiratory Rate 14 Blood Pressure 130/91 H Pulse Oximetry 98 Oxygen Delivery Room Air 02/07/25 22:00 02/07/25 23:53 02/08/25 00:00 Temperature 98.2 F Pulse Rate 68 79 Respiratory Rate 14 Blood Pressure 128/75 Pulse Oximetry 99 Oxygen Delivery Room Air 02/08/25 00:00 02/08/25 02:00 02/08/25 04:00 Temperature 98.3 F Pulse Rate 79 61 64 Respiratory Rate 14 Blood Pressure 112/74 Pulse Oximetry 97 Oxygen Delivery 02/08/25 04:00 02/08/25 04:00 02/08/25 06:00 Temperature Pulse Rate 66 61 Respiratory Rate Blood Pressure Pulse Oximetry Oxygen Delivery Room Air Intake/Output Intake/Output: Intake & Output 02/05/25 02/06/25 02/07/25 02/08/25 23:59 23:59 23:59 23:59 Intake Total 585.5 1760 550 Output Total 1002 300 Balance 585.5 758 250 Meds/Results Medications: Active Medications Generic Name Dose Route Start Last Admin Trade Name Freq PRN Reason Stop Dose Admin Acetaminophen 650 mg 02/06/25 00:07 02/06/25 14:44 Acetaminophen 325 Mg Tablet PO 650 mg Q4H PRN Administration Mild Pain (1-3) or Fever Aspirin 81 mg 02/06/25 09:00 02/07/25 11:35 Aspirin 81 Mg Enteric Tablet PO 81 mg DAILY BREE Administration Atorvastatin Calcium 80 mg 02/06/25 09:00 02/07/25 11:35 Atorvastatin 40 Mg Tablet PO 80 mg QAM BREE Administration Clopidogrel Bisulfate 75 mg 02/06/25 09:00 02/07/25 11:35 Clopidogrel Bisulfate 75 Mg Tablet PO 75 mg DAILY BREE Administration Colchicine 0.6 mg 02/06/25 11:45 02/07/25 20:56 Colchicine 0.6 Mg Tablet PO 0.6 mg Q12HR BREE Administration Enoxaparin Sodium 100 mg 02/06/25 12:00 02/08/25 00:00 Enoxaparin 100 Mg/Ml Syringe SUB-Q 100 mg Q12H BREE Administration Heparin Sodium (Porcine) 4,000 units 02/05/25 23:56 Heparin Sodium 5,000 Units/Ml Vial IV PUSH PRN PRN aPTT less than 55 seconds Heparin Sodium (Porcine) 3,500 units 02/05/25 23:56 Heparin Sodium 5,000 Units/Ml Vial IV PUSH PRN PRN aPTT 55 - 70 seconds Morphine Sulfate 2 mg 02/06/25 03:44 02/07/25 00:47 Morphine Sulfate (*Crx) 4 Mg/Ml Inj IV PUSH 2 mg Q4H PRN Administration Pain Rated 7-10 Ondansetron HCl 4 mg 02/06/25 00:07 Ondansetron Inj 4 Mg/2 Ml Vial IV PUSH Q4H PRN Nausea Pantoprazole Sodium 40 mg 02/06/25 09:00 02/07/25 20:56 Pantoprazole 40 Mg Tablet PO 40 mg Q12HR BREE Administration Radiology Results: ITS Impressions Chest X-Ray 02/06/25 06:09 IMPRESSION: 1. No acute cardiopulmonary findings. Chest CTA 02/06/25 13:08 IMPRESSION: 1. No PE or other acute cardiopulmonary findings. Lexiscan Stress Test 02/07/25 10:16 IMPRESSION: 1. Small focus of mild decreased activity at the apical lateral segment on the non gated post stress imaging which changes slightly in position on the post stress imaging obtained in the prone position and which appears to normalize on the gated post stress imaging which would favor artifact over ischemia. No other definitive myocardial perfusion defects at rest and during stress to suggest ischemia or infarct.. 2. Borderline left ventricular ejection fraction measuring 46%. Head CT 02/07/25 15:11 IMPRESSION: 1. Normal brain. No acute intracranial process. Head/Neck CTA 02/07/25 15:26 IMPRESSION: 1. No evident atherosclerotic plaque with 0% stenosis of the right and left carotid bulbs relative to normal distal artery lumen diameter (NASCET criteria). 2. Unremarkable cerebral CT angiogram with no evident thrombosis, hemodynamically significant stenosis or aneurysm. Labs Labs: Laboratory Results - last 24 hr 02/07/25 02/08/25 14:54 03:40 WBC 5.8 RBC 4.80 Hgb 13.9 L Hct 40.3 L MCV 84.0 MCH 29.0 MCHC 34.5 RDW 11.9 Plt Count 340 MPV 9.3 Immature Gran % (Auto) 0.3 Neut % (Auto) 49.6 Lymph % (Auto) 37.4 [place] % (Auto) 9.4 H Eos % (Auto) 3.0 Baso % (Auto) 0.3 Lymph # (Auto) 2.15 [place] # (Auto) 0.5 Eos # (Auto) 0.2 Baso # (Auto) 0.0 Abs Immat Gran (auto) 0.02 Absolute Neuts (auto) 2.9 Absolute Nucleated RBC 0.000 Nucleated RBC % 0.0 Sodium 137 Potassium 3.6 Chloride 104 Carbon Dioxide 27 Anion Gap 6 BUN 14 Creatinine 0.97 Estim Creat Clear Calc 98 Estimated GFR > 60 Glucose 141 H POC Capillary Glucose 113 H Calcium 8.7 Magnesium 2.1 Total Bilirubin 0.4 AST 45 ALT 56 H Alkaline Phosphatase 59 Total Protein 6.1 L Albumin 3.6 Quality VTE Prophylaxis VTE prophylaxis: pharmacologic ordered Hospitalist MIPS Advance Care Plan I have confirmed that the patient's Advanced Care Plan is present, code status is documented, or surrogate decision maker is listed in patient medical record.: Yes Medication Reconciliation I have utilized all available resources to obtain, update and review the patients current medications (includes all prescriptions, OTC, herbals, cannabis, and nutritional supplements).: Yes
[2025-02-08] MEDS: COLCHICINE 0.6 MG TABLET PO ×2 (09:13→20:24)
[2025-02-08] MEDS: ASPIRIN 81 MG ENTERIC TABLET PO (09:13)
[2025-02-08] MEDS: PANTOPRAZOLE 40 MG TABLET PO ×2 (09:13→20:24)
[2025-02-08] MEDS: CLOPIDOGREL BISULFATE 75 MG TABLET PO (09:13)
[2025-02-08] MEDS: ATORVASTATIN 40 MG TABLET 80 MG PO (09:13)
--- NOTE | 2025-02-08 09:38 | P.PNCA_ITS ---
Progress Note: A&P Assessment and Plan (1) Chest tightness: Code(s): R07.89 - Other chest pain Status: Acute (2) History of angioplasty: Code(s): Z98.62 - Peripheral vascular angioplasty status Status: Acute (3) Hypertension: Code(s): I10 - Essential (primary) hypertension Status: Acute (4) Hyperlipidemia: Code(s): E78.5 - Hyperlipidemia, unspecified Status: Acute Plan Impression: 1. Patient with known history of coronary artery disease now presents with substernal chest pain. Cardiac enzymes are mildly increased at 0.1 but with flat trend. History of angioplasty of the LAD on 01/23/2025 subsequently angioplasty of the obtuse marginal branch 2 on 01/26/2025. Etiology of his chest pain is unclear artery occlusion cannot be entirely excluded. EKG does not show acute ST changes. Status post nuclear stress test which showed small fixed apical defect and reduced ejection fraction in the range of 47%. 2. Significant risk factors including history of hypertension hyperlipidemia and type 2 diabetes. 3. Transient blindness in the left eye lasting for about 10 minutes now completely dissolved. CT scan of the brain and CT angiogram of the head and neck are negative for any carotid artery stenosis or intracranial problems, hemorrhage or other positive findings. Patient currently remains on dual platelet agents as well as full-dose subcu Lovenox. Recommendations: #. So far stable EKG and cardiac enzymes. Episode of chest pain yesterday evening with negative EKG and cardiac enzymes are trending down. #. Currently blood pressure blood pressure 113/80 and heart rate is 68 per minute Current medications reviewed. Continue with aspirin 81 mg daily, Plavix 75 mg daily, atorvastatin 80 mg at bedtime, #. Echocardiogram to evaluate for wall motion abnormalities. #. Nuclear stress test completed today. #. Inflammatory markers are negative with negative CRP and sed rate of only 16. Decrease colchicine to 0.6 mg daily. #. In view of his TIA patient may need transesophageal echocardiogram to rule out patent foramen ovale or other intracardiac source of emboli due to recent acute ischemic event requiring angioplasty of the LAD. Outpatient 30 day event monitor is also recommended. May have to switch to Eliquis, Plavix and aspirin as long as tolerated. Aspirin could be discontinued after 4 weeks of angioplasty. #. Neurology consult is pending for further recommendations. Subjective Date/time seen: 02/08/25 09:38 Interval history: Review of HPI; 44 years old male admitted via emergency room on 02/05/2025 with complaints of chest pain Patient has past medical history significant for history of hypertension, hyperlipidemia and obesity. Patient has known history of coronary disease with stent placed in LAD in 01/23/2025. Subsequently patient was admitted at [facility] had a 2nd stent placed in the OM 2 on 01/26/2025. Previous echocardiogram has shown systolic function estimated at 40%. Previous history of possible pericarditis treated with colchicine. No associated fever or chills. No complaints of shortness of breath. EKG performed on admission revealed normal sinus rhythm with heart rate of 67 per minute and no acute ST or T-wave changes. No suggestion of pericarditis. Admitting blood pressure was 139/94. Heart rate was 79 per minute with regular rhythm and patient was afebrile. Admitting laboratory data revealed WBC count 6.3, hemoglobin 14.1, platelets are normal. Sodium 135, potassium is 4.0, BUN is 14, creatinine is 1.0. LFTs are normal. ProBNP was 72. Admitting troponin was 0.0120. Subsequent troponin was 0.129. Overall trend is flat without suggestion for acute coronary syndrome. Subjective; Patient was examined at the bedside. Patient is awake alert and appears comfortable without shortness of breath or chest pain. Nuclear stress test yesterday showed a small apical fixed defect in ejection fraction 47% without any reversible defects. Later yesterday patient had an episode for transient blindness in the left eye which lasted for 10-15 minutes. Patient had a CT scan of the brain as well as CT angiogram and neurology consult. Patient is stable this morning. Review of Systems Review of Systems: Twelve point review of system was completed. Pertinent positive and negative findings per HPI. Cardiac negative for chest pain, shortness of breath . Pulmonary negative for shortness of b reath, cough or hemoptysis. Neurovascular positive for TIA symptom yesterday with transient blindness in the left eye it resolved completely. Gastrointestinal negative. Exam Narrative: Patient was examined at the bedside. Patient is awake alert appears comfortable without shortness of breath. Oriented x3. Well built and well nourished. Mildly obese with BMI of 30.3. Head and neck examination is unremarkable. Head is atraumatic. Sclerae is nonicteric. ENT examination is negative. Neck is supple. There is no JVD or carotid bruit. Thyroid is not enlarged. There is no cervical lymphadenopathy. Lungs are clear to auscultation percussion. There is no wheezing or crepitation. Heart sounds reveal normal S1-S2. Rhythm is regular. There is no significant murmurs. There is no S3 or S4. There is no pericardial rub. Abdomen is soft nontender. There is no hepatosplenomegaly. Bowel sounds are present. Extremities revealed no pedal edema. Neurological examination is intact. Psych is intact Skin and musculoskeletal negative Objective Data Vital Signs Vital Signs: Vital Signs - 24 hr 02/07/25 10:00 02/07/25 12:00 02/07/25 12:00 Temperature 36.3 C L Pulse Rate 75 78 Respiratory Rate 18 Blood Pressure 135/80 Pulse Oximetry 97 Oxygen Delivery Room Air 02/07/25 12:00 02/07/25 14:00 02/07/25 16:00 Temperature 36.6 C Pulse Rate 70 76 76 Respiratory Rate 16 Blood Pressure 120/81 Pulse Oximetry 97 Oxygen Delivery 02/07/25 16:00 02/07/25 16:00 02/07/25 18:00 Temperature Pulse Rate 78 76 Respiratory Rate Blood Pressure Pulse Oximetry Oxygen Delivery Room Air 02/07/25 20:00 02/07/25 20:00 02/07/25 20:00 Temperature 36.7 C Pulse Rate 72 68 Respiratory Rate 14 Blood Pressure 130/91 H Pulse Oximetry 98 Oxygen Delivery Room Air 02/07/25 22:00 02/07/25 23:53 02/08/25 00:00 Temperature 36.8 C Pulse Rate 68 79 Respiratory Rate 14 Blood Pressure 128/75 Pulse Oximetry 99 Oxygen Delivery Room Air 02/08/25 00:00 02/08/25 02:00 02/08/25 04:00 Temperature 36.8 C Pulse Rate 79 61 64 Respiratory Rate 14 Blood Pressure 112/74 Pulse Oximetry 97 Oxygen Delivery 02/08/25 04:00 02/08/25 04:00 02/08/25 06:00 Temperature Pulse Rate 66 61 Respiratory Rate Blood Pressure Pulse Oximetry Oxygen Delivery Room Air 02/08/25 08:00 02/08/25 08:00 02/08/25 08:00 Temperature 36.6 C Pulse Rate 64 64 65 Respiratory Rate 16 16 Blood Pressure 127/77 Pulse Oximetry 99 99 Oxygen Delivery Room Air Intake/Output Intake/Output: Intake & Output 02/05/25 02/06/25 02/07/25 02/08/25 23:59 23:59 23:59 23:59 Intake Total 585.5 1760 550 Output Total 1002 300 Balance 585.5 758 250 Meds/Results Medications: Active Medications Generic Name Dose Route Start Last Admin Trade Name Freq PRN Reason Stop Dose Admin Acetaminophen 650 mg 02/06/25 00:07 02/06/25 14:44 Acetaminophen 325 Mg Tablet PO 650 mg Q4H PRN Administration Mild Pain (1-3) or Fever Aspirin 81 mg 02/06/25 09:00 02/08/25 09:13 Aspirin 81 Mg Enteric Tablet PO 81 mg DAILY BREE Administration Atorvastatin Calcium 80 mg 02/06/25 09:00 02/08/25 09:13 Atorvastatin 40 Mg Tablet PO 80 mg QAM BREE Administration Clopidogrel Bisulfate 75 mg 02/06/25 09:00 02/08/25 09:13 Clopidogrel Bisulfate 75 Mg Tablet PO 75 mg DAILY BREE Administration Colchicine 0.6 mg 02/06/25 11:45 02/08/25 09:13 Colchicine 0.6 Mg Tablet PO 0.6 mg Q12HR BREE Administration Enoxaparin Sodium 100 mg 02/06/25 12:00 02/08/25 00:00 Enoxaparin 100 Mg/Ml Syringe SUB-Q 100 mg Q12H BREE Administration Heparin Sodium (Porcine) 4,000 units 02/05/25 23:56 Heparin Sodium 5,000 Units/Ml Vial IV PUSH PRN PRN aPTT less than 55 seconds Heparin Sodium (Porcine) 3,500 units 02/05/25 23:56 Heparin Sodium 5,000 Units/Ml Vial IV PUSH PRN PRN aPTT 55 - 70 seconds Morphine Sulfate 2 mg 02/06/25 03:44 02/07/25 00:47 Morphine Sulfate (*Crx) 4 Mg/Ml Inj IV PUSH 2 mg Q4H PRN Administration Pain Rated 7-10 Ondansetron HCl 4 mg 02/06/25 00:07 Ondansetron Inj 4 Mg/2 Ml Vial IV PUSH Q4H PRN Nausea Pantoprazole Sodium 40 mg 02/06/25 09:00 02/08/25 09:13 Pantoprazole 40 Mg Tablet PO 40 mg Q12HR BREE Administration Radiology Results: ITS Impressions Chest X-Ray 02/06/25 06:09 IMPRESSION: 1. No acute cardiopulmonary findings. Chest CTA 02/06/25 13:08 IMPRESSION: 1. No PE or other acute cardiopulmonary findings. Lexiscan Stress Test 02/07/25 10:16 IMPRESSION: 1. Small focus of mild decreased activity at the apical lateral segment on the non gated post stress imaging which changes slightly in position on the post stress imaging obtained in the prone position and which appears to normalize on the gated post stress imaging which would favor artifact over ischemia. No other definitive myocardial perfusion defects at rest and during stress to suggest ischemia or infarct.. 2. Borderline left ventricular ejection fraction measuring 46%. Head CT 02/07/25 15:11 IMPRESSION: 1. Normal brain. No acute intracranial process. Head/Neck CTA 02/07/25 15:26 IMPRESSION: 1. No evident atherosclerotic plaque with 0% stenosis of the right and left carotid bulbs relative to normal distal artery lumen diameter (NASCET criteria). 2. Unremarkable cerebral CT angiogram with no evident thrombosis, hemodynamically significant stenosis or aneurysm. Labs Labs: Laboratory Results - last 24 hr 02/07/25 02/08/25 14:54 03:40 WBC 5.8 RBC 4.80 Hgb 13.9 L Hct 40.3 L MCV 84.0 MCH 29.0 MCHC 34.5 RDW 11.9 Plt Count 340 MPV 9.3 Immature Gran % (Auto) 0.3 Neut % (Auto) 49.6 Lymph % (Auto) 37.4 [place] % (Auto) 9.4 H Eos % (Auto) 3.0 Baso % (Auto) 0.3 Lymph # (Auto) 2.15 [place] # (Auto) 0.5 Eos # (Auto) 0.2 Baso # (Auto) 0.0 Abs Immat Gran (auto) 0.02 Absolute Neuts (auto) 2.9 Absolute Nucleated RBC 0.000 Nucleated RBC % 0.0 Sodium 137 Potassium 3.6 Chloride 104 Carbon Dioxide 27 Anion Gap 6 BUN 14 Creatinine 0.97 Estim Creat Clear Calc 98 Estimated GFR > 60 Glucose 141 H POC Capillary Glucose 113 H Calcium 8.7 Magnesium 2.1 Total Bilirubin 0.4 AST 45 ALT 56 H Alkaline Phosphatase 59 Total Protein 6.1 L Albumin 3.6
[2025-02-08] MEDS: ENOXAPARIN 100 MG/ML SYRINGE SUB-Q ×3 (12:17→21:08)
[2025-02-08] MEDS: MELATONIN 5 MG TABLET PO (23:32)
[2025-02-09] VITALS (15 sets, daily range): BP systolic 113–132; BP diastolic 72–88; PULSE 51–90; RESP 12–20; TEMP 36.1–36.5; O2SAT 93–100
--- NOTE | 2025-02-09 | ECHO_ITS ---
Patient Info Name: Ascencion Alexandre Age: 44 years : 1980 Gender: Male Ht: 28 in Wt: 467 lbs BSA: 2.33 m2 HR: 70 bpm BP: 122 / 90 mmHg Heart Rhythm: Sinus Rhythm Technical Quality: Good Exam Date: 02/09/2025 8:01 AM Patient Status: O Admit Date: 02/06/2025 Exam Type: CA echo transesophageal Complete two-dimensional, color flow and Doppler transesophageal study is performed. Staff Referring Physician: Sidney Blackmon [employer] Worker: Amanda Sr Attending Provider: Trinity Menon Contrast/Agitated Saline Contrast/Ag. Saline: Agitated Saline Amount: 20.00 ml Existing IV Access: Yes IV Access Condition: patent with no signs of infiltration Summary 1. Transesophageal echo essentially unremarkable study. 2. Direct visualization of the interatrial septum, Doppler interrogation and saline contrast demonstrates no shunt. Left Ventricle Left ventricular chamber dimension is normal. There is no increased left ventricular wall thickness. Right Ventricle Right ventricular chamber dimension is normal. Left Atria Left atrial chamber dimension is normal. Right Atria Right atrial chamber dimension is normal. Atrial Septum Intact interatrial septum visualized by agitated saline imaging. Aortic Valve The aortic valve is normal. Pulmonic Valve The pulmonic valve is normal. Mitral Valve The mitral valve has normal leaflets. Tricuspid Valve The tricuspid valve leaflets are normal. Pericardium/Pleural The pericardium appears normal. Aorta The aortic root size at the sinus of Valsalva is normal. Report Signatures
[2025-02-09 04:21] LABS: Hematocrit 41.5 % (42.0-52.0); Hemoglobin 14.4 g/dL (14.0-18.0); Mean Corpuscular HGB Conc 34.7 g/dl (32-36); Mean Corpuscular Hemoglobin 29.1 pg (26-34); Mean Corpuscular Volume 83.8 fl (80-100); Platelet Count Result 309 k/mm3 (150-375); Red Blood Count 4.95 M/mm3 (4.6-6.20); White Blood Count 6.5 K/mm3 (4.5-10.0)
[2025-02-09 04:31] LABS: Alanine Aminotransferase 217 U/L (6-50); Albumin Level 3.6 g/dL (3.5-5.1); Alkaline Phosphatase 65 U/L (38-126); Anion Gap 7 mmol/L (4-12); Aspartate Amino Transferase 156 U/L (17-59); Bilirubin,Total 0.7 mg/dL (0.2-1.3); Blood Urea Nitrogen 12 mg/dL (9-20); Calcium 8.5 mg/dL (8.4-10.2); Carbon Dioxide 25 mmol/L (22-30); Chloride 104 mmol/L (98-107); Estimated CRCL calculation 91 ml/min; Estimated Glomerular Filt Rate > 60; Glucose 102 mg/dL (65-110); Potassium 3.8 mmol/L (3.4-5.0); Sodium 136 mmol/L (137-145); Total Protein 6.2 g/dL (6.3-8.2)
--- NOTE | 2025-02-09 07:41 | PC.NURSE ---
Pt to [employer] pipelines via bed for SAKINA
--- NOTE | 2025-02-09 08:23 | P.SEDATION_ITS ---
Moderate Sedation Note-Pt Data Patient Data Diagnosis: Transient cerebral ischemic attack Present Complaint: No current complaints Procedure to be performed/Plan: Transesophageal echocardiogram to rule out PFO Allergies Allergy/AdvReac Type Severity Reaction Status Date / Time nitroglycerin Allergy Severe Hypotension Verified 02/06/25 03:04 vancomycin Allergy Intermediate Redness of Verified 02/06/25 03:04 Skin prednisolone Allergy Unknown hives Verified 02/06/25 03:04 Milk Containing Products AdvReac Mild Heartburn Verified 02/06/25 03:05 (Dairy) Home Medications ?Medication ?Instructions ?Recorded ?Confirmed ?Type aspirin 81 mg tablet,delayed 81 mg PO DAILY 02/06/25 1 History release atorvastatin 80 mg tablet 80 mg PO QAM 02/06/25 History clopidogrel 75 mg tablet 75 mg PO DAILY 02/06/2509/26 History colchicine 0.6 mg tablet 0.6 mg PO .q12hr 02/06/25 History pantoprazole 40 mg tablet,delayed 40 mg PO Q12H 02/06/25 History release Current Medications: Active Medications Acetaminophen (Acetaminophen 325 Mg Tablet) 650 mg PO Q4H PRN PRN Reason: Mild Pain (1-3) or Fever Last Admin: 02/06/25 14:44 Dose: 650 mg Aspirin (Aspirin 81 Mg Enteric Tablet) 81 mg PO DAILY [facility] Last Admin: 02/08/25 09:13 Dose: 81 mg Atorvastatin Calcium (Atorvastatin 40 Mg Tablet) 80 mg PO QAM [facility] Last Admin: 02/08/25 09:13 Dose: 80 mg Clopidogrel Bisulfate (Clopidogrel Bisulfate 75 Mg Tablet) 75 mg PO DAILY [facility] Last Admin: 02/08/25 09:13 Dose: 75 mg Colchicine (Colchicine 0.6 Mg Tablet) 0.6 mg PO Q12HR [facility] Last Admin: 02/08/25 20:24 Dose: 0.6 mg Enoxaparin Sodium (Enoxaparin 100 Mg/Ml Syringe) 100 mg SUB-Q Q12H [facility] Last Admin: 02/08/25 21:08 Dose: 100 mg Heparin Sodium (Porcine) (Heparin Sodium 5,000 Units/Ml Vial) 4,000 units IV PUSH PRN PRN PRN Reason: aPTT less than 55 seconds Heparin Sodium (Porcine) (Heparin Sodium 5,000 Units/Ml Vial) 3,500 units IV PUSH PRN PRN PRN Reason: aPTT 55 - 70 seconds Melatonin (Melatonin 5 Mg Tablet) 5 mg PO HS [facility] Last Admin: 02/08/25 23:32 Dose: 5 mg Morphine Sulfate (Morphine Sulfate (*Crx) 4 Mg/Ml Inj) 2 mg IV PUSH Q4H PRN PRN Reason: Pain Rated 7-10 Last Admin: 02/07/25 00:47 Dose: 2 mg Ondansetron HCl (Ondansetron Inj 4 Mg/2 Ml Vial) 4 mg IV PUSH Q4H PRN PRN Reason: Nausea Pantoprazole Sodium (Pantoprazole 40 Mg Tablet) 40 mg PO Q12HR [facility] Last Admin: 02/08/25 20:24 Dose: 40 mg Sedation/Anesthesia: No previous sedation/anesthesia problems (including family history). [facility] Past Medical History Medical History History of ST elevation myocardial infarction (STEMI) x2 in Jan 2025 Hyperlipidemia Eosinophilic esophagitis Hypertension CAD (coronary artery disease) Surgical History Surgical History History of repair of ACL Right knee H/O esophagogastroduodenoscopy H/O cardiac catheterization X2 H/O heart artery stent LAD stent 01/23/2025 only M2 since 01/26/2025 Family History Family History Mother Lung cancer Father Malignant neoplasm of prostate Social History Social History Social History: The patient lives with his and 2 children in [facility]. 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 Code status: Full code Smoking status: Former smoker Tobacco type: cigarettes Smokeless tobacco user: chewing tobacco Second hand tobacco smoke exposure: No Alcohol intake: current Drinks per week: 1 Substance use: former Substance use type: marijuana Last use: 2004 Lack of Transportation: No Lack of Food: Never True Current Housing: I Have Housing Concerned About Future Housing: No Difficulty Paying Gas/Electric Bills: No Difficulty Paying for Meds: No Currently Unemployed: No Education: Master's Degree or Higher Difficulty w/ Childcare or Family Care: No Spiritual care concerns: No Mod Sed Physical Exam Physical Exam Pre Procedural Exam: Normal: Appearance, Neck, Throat, Airway, Lungs, Heart Size, Heart Rate, Heart Rhythm, Neuro Exam and Extremities Hours since solid foods: 12 Hours since liquid intake: 12 Mallampati Classification: class II Internal Medicine - PN: Obj Da Vital Signs Vital Signs: Vital Signs - 24 hr 02/08/25 10:00 02/08/25 12:00 02/08/25 12:00 Temperature 36.6 C Pulse Rate 74 82 82 Respiratory Rate 16 16 Blood Pressure 121/73 Pulse Oximetry 100 100 Oxygen Delivery Room Air 02/08/25 12:00 02/08/25 14:00 02/08/25 16:00 Temperature 36.7 C Pulse Rate 67 70 76 Respiratory Rate 20 Blood Pressure 131/86 Pulse Oximetry 96 Oxygen Delivery 02/08/25 16:00 02/08/25 16:00 02/08/25 18:00 Temperature Pulse Rate 76 88 64 Respiratory Rate 20 Blood Pressure Pulse Oximetry 96 Oxygen Delivery Room Air 02/08/25 20:00 02/08/25 20:00 02/08/25 20:22 Temperature 36.6 C Pulse Rate 67 65 Respiratory Rate 16 Blood Pressure 132/81 Pulse Oximetry 100 Oxygen Delivery Room Air 02/08/25 22:00 02/08/25 23:29 02/09/25 00:00 Temperature 36.4 C Pulse Rate 61 65 Respiratory Rate 16 Blood Pressure 135/83 Pulse Oximetry 99 Oxygen Delivery Room Air 02/09/25 00:00 02/09/25 02:00 02/09/25 04:00 Temperature Pulse Rate 51 L 59 L Respiratory Rate Blood Pressure Pulse Oximetry Oxygen Delivery Room Air 02/09/25 04:00 02/09/25 04:17 02/09/25 06:00 Temperature 36.5 C Pulse Rate 66 76 64 Respiratory Rate 15 Blood Pressure 113/72 Pulse Oximetry 97 Oxygen Delivery 02/09/25 08:00 02/09/25 08:01 02/09/25 08:15 Temperature 36.4 C Pulse Rate 90 Respiratory Rate 16 20 17 Blood Pressure 131/88 Pulse Oximetry 100 96 96 Oxygen Delivery Room Air Room Air Intake/Output Intake/Output: Intake & Output 02/06/25 02/07/25 02/08/25 02/09/25 23:59 23:59 23:59 23:59 Intake Total 585.5 1760 1770 550 Output Total 1002 300 Balance 585.5 758 1470 550 Meds/Results Medications: Active Medications Generic Name Dose Route Start Last Admin Trade Name Freq PRN Reason Stop Dose Admin Acetaminophen 650 mg 02/06/25 00:07 02/06/25 14:44 Acetaminophen 325 Mg Tablet PO 650 mg Q4H PRN Administration Mild Pain (1-3) or Fever Aspirin 81 mg 02/06/25 09:00 02/08/25 09:13 Aspirin 81 Mg Enteric Tablet PO 81 mg DAILY [facility] Administration Atorvastatin Calcium 80 mg 02/06/25 09:00 02/08/25 09:13 Atorvastatin 40 Mg Tablet PO 80 mg QAM [facility] Administration Clopidogrel Bisulfate 75 mg 02/06/25 09:00 02/08/25 09:13 Clopidogrel Bisulfate 75 Mg Tablet PO 75 mg DAILY [facility] Administration Colchicine 0.6 mg 02/06/25 11:45 02/08/25 20:24 Colchicine 0.6 Mg Tablet PO 0.6 mg Q12HR [facility] Administration Enoxaparin Sodium 100 mg 02/08/25 21:00 02/08/25 21:08 Enoxaparin 100 Mg/Ml Syringe SUB-Q 100 mg Q12H [facility] Administration Heparin Sodium (Porcine) 4,000 units 02/05/25 23:56 Heparin Sodium 5,000 Units/Ml Vial IV PUSH PRN PRN aPTT less than 55 seconds Heparin Sodium (Porcine) 3,500 units 02/05/25 23:56 Heparin Sodium 5,000 Units/Ml Vial IV PUSH PRN PRN aPTT 55 - 70 seconds Melatonin 5 mg 02/08/25 23:30 02/08/25 23:32 Melatonin 5 Mg Tablet PO 5 mg HS [facility] Administration Morphine Sulfate 2 mg 02/06/25 03:44 02/07/25 00:47 Morphine Sulfate (*Crx) 4 Mg/Ml Inj IV PUSH 2 mg Q4H PRN Administration Pain Rated 7-10 Ondansetron HCl 4 mg 02/06/25 00:07 Ondansetron Inj 4 Mg/2 Ml Vial IV PUSH Q4H PRN Nausea Pantoprazole Sodium 40 mg 02/06/25 09:00 02/08/25 20:24 Pantoprazole 40 Mg Tablet PO 40 mg Q12HR [facility] Administration Radiology Results: ITS Impressions Chest X-Ray 02/06/25 06:09 IMPRESSION: 1. No acute cardiopulmonary findings. Chest CTA 02/06/25 13:08 IMPRESSION: 1. No PE or other acute cardiopulmonary findings. Lexiscan Stress Test 02/07/25 10:16 IMPRESSION: 1. Small focus of mild decreased activity at the apical lateral segment on the non gated post stress imaging which changes slightly in position on the post stress imaging obtained in the prone position and which appears to normalize on the gated post stress imaging which would favor artifact over ischemia. No other definitive myocardial perfusion defects at rest and during stress to suggest ischemia or infarct.. 2. Borderline left ventricular ejection fraction measuring 46%. Head CT 02/07/25 15:11 IMPRESSION: 1. Normal brain. No acute intracranial process. Head/Neck CTA 02/07/25 15:26 IMPRESSION: 1. No evident atherosclerotic plaque with 0% stenosis of the right and left carotid bulbs relative to normal distal artery lumen diameter (NASCET criteria). 2. Unremarkable cerebral CT angiogram with no evident thrombosis, hemodynamically significant stenosis or aneurysm. Brain MRI 02/08/25 10:07 IMPRESSION: 1. Normal brain. Labs 02/09/25 03:56 02/09/25 03:56 Labs: Laboratory Results - last 24 hr 02/09/25 03:56 WBC 6.5 RBC 4.95 Hgb 14.4 Hct 41.5 L MCV 83.8 MCH 29.1 MCHC 34.7 RDW 12.0 Plt Count 309 MPV 9.1 Sodium 136 L Potassium 3.8 Chloride 104 Carbon Dioxide 25 Anion Gap 7 BUN 12 Creatinine 1.05 Estim Creat Clear Calc 91 Estimated GFR > 60 Glucose 102 Calcium 8.5 Total Bilirubin 0.7 AST 156 H ALT 217 H Alkaline Phosphatase 65 Total Protein 6.2 L Albumin 3.6 ASA Classification/Sedation ASA Classification/Sedation ASA Class: II Emergent: No Risks: Risks, benefits and alternatives explained and patient/family accepted plan for sedation. Patient re-evaluated immediately prior to sedation.
--- NOTE | 2025-02-09 08:24 | WPDCARDPROC ---
Cardiac Cath Procedure Note Date of procedure:: 02/09/25 Performing physician:: Bong Barroso MD Indication:: TIA Brief clinical history:: This is a 44-year-old man being evaluated experience any amaurosis fugax and symptoms of left hemispheric ischemia transiently about 48 hours ago. Procedure Procedure performed:: Transesophageal echocardiogram Sedation/Medication given:: IV propofol and aliquots total dosage of 100 mg Case start time 8:10 a.m. Case end time 8:20 a.m. Estimated blood loss:: No blood loss Procedure note:: Patient was brought to the cardiac catheterization lab holding area in the postabsorptive state placed in the supine position. Oropharyngeal benzocaine was used for topical anesthesia of the hypopharynx. Following this a bite block was placed and he was then sedated with propofol in aliquots. A total dosage of 100 mg was given which provided very nice sedation. The SAKINA probe was placed into the hypopharynx and easily advanced into the esophagus. Multiplane SAKINA was then performed with the attention primarily to the interatrial septum. During imaging 2 injections of agitated saline contrast were given which provided excellent opacification of the right heart chambers. Color Doppler interrogation was also performed of the interatrial septum. Following completion of the study the SAKINA probe was withdrawn and the patient was recovered uneventfully. Findings:: The left atrium is normal in size. The mitral valve leaflets are unremarkable in appearance. The left ventricle is of normal dimension and thickness contractility is adequate in all segments the global ejection fraction is 50% by visual estimation the aortic valve was a normal trileaflet structure which is thin and pliable. The aortic root is normal in appearance. The right-sided chambers are normal in size and appearance the tricuspid and pulmonic valves look normal. The interatrial septum is intact normal in appearance there is no visible discontinuity. Color Doppler interrogation of the septum shows no evidence of intracardiac shunting. Saline contrast as stated above provided excellent opacification of the right atrium and right ventricle no contrast was seen appearing in the left heart chambers. Conclusion:: Transesophageal echocardiogram with saline contrast performed as described above. No apparent cardioembolic source was identified no evidence of patent foramen ovale Bong Barroso MD [facility]
[2025-02-09] MEDS: PROPOFOL IV EMULSION 200 MG/20 ML VIAL 100 MG IV PUSH (08:36)
--- NOTE | 2025-02-09 09:10 | PC.NURSE ---
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 No issue noted
[2025-02-09] MEDS: COLCHICINE 0.6 MG TABLET PO (09:17)
[2025-02-09] MEDS: ATORVASTATIN 40 MG TABLET 80 MG PO (09:17)
[2025-02-09] MEDS: PANTOPRAZOLE 40 MG TABLET PO (09:18)
[2025-02-09] MEDS: ASPIRIN 81 MG ENTERIC TABLET PO (09:18)
[2025-02-09] MEDS: CLOPIDOGREL BISULFATE 75 MG TABLET PO (09:18)
[2025-02-09] MEDS: SODIUM CHLORIDE 0.9% IV 500 ML 125 ML (09:26)
--- NOTE | 2025-02-09 11:23 | PM.PNCARD ---
Progress Note: A&P Assessment and Plan (1) Chest tightness: Code(s): R07.89 - Other chest pain Status: Acute (2) History of angioplasty: Code(s): Z98.62 - Peripheral vascular angioplasty status Status: Acute (3) Hypertension: Code(s): I10 - Essential (primary) hypertension Status: Acute (4) Hyperlipidemia: Code(s): E78.5 - Hyperlipidemia, unspecified Status: Acute Plan Impression: 1. Patient with known history of coronary artery disease now presents with substernal chest pain. Cardiac enzymes are mildly increased at 0.1 but with flat trend. History of angioplasty of the LAD on 01/23/2025 subsequently angioplasty of the obtuse marginal branch 2 on 01/26/2025. Etiology of his chest pain is unclear artery occlusion cannot be entirely excluded. EKG does not show acute ST changes. Status post nuclear stress test which showed small fixed apical defect and reduced ejection fraction in the range of 47%. 2. Significant risk factors including history of hypertension hyperlipidemia and type 2 diabetes. 3. Transient blindness in the left eye lasting for about 10 minutes now completely dissolved. CT scan of the brain and CT angiogram of the head and neck are negative for any carotid artery stenosis or intracranial problems, hemorrhage or other positive findings. Patient currently remains on dual platelet agents as well as full-dose subcu Lovenox. Recommendations: #. So far stable EKG and cardiac enzymes. Episode of chest pain yesterday evening with negative EKG and cardiac enzymes are trending down. #. Currently blood pressure blood pressure 113/80 and heart rate is 68 per minute Current medications reviewed. Continue with aspirin 81 mg daily, Plavix 75 mg daily, atorvastatin 80 mg at bedtime, #. Echocardiogram to evaluate for wall motion abnormalities. #. Nuclear stress test on 02/07/2025 revealed small fixed apical defect an ejection fraction of 47%. Status post SAKINA today which was negative for intracardiac thrombi or PFO. #. Inflammatory markers are negative with negative CRP and sed rate of only 16. Decrease colchicine to 0.6 mg daily. #. In view of his TIA patient may need transesophageal echocardiogram to rule out patent foramen ovale or other intracardiac source of emboli due to recent acute ischemic event requiring angioplasty of the LAD. Outpatient 30 day event monitor is also recommended. May have to switch to Eliquis, Plavix and aspirin as long as tolerated. Aspirin could be discontinued after 4 weeks of angioplasty. SAKINA performed today is negative for PFO or intracardiac source of thrombi. Left atrial appendage was negative. #. Neurology evaluation is pending. Patient is clinically stable to have that done as an outpatient if patient is agreeable. Discussed with primary attending with a plan to discharge patient as he has appointment with his insurance and financial services agent tomorrow. Recommend 30 day event monitor through these cardiology outpatient services with his primary insurance and financial services agent. Subjective Date/time seen: 02/09/25 11:23 Interval history: Review of HPI; 44 years old male admitted via emergency room on 02/05/2025 with complaints of chest pain Patient has past medical history significant for history of hypertension, hyperlipidemia and obesity. Patient has known history of coronary disease with stent placed in LAD in 01/23/2025. Subsequently patient was admitted at [facility] had a 2nd stent placed in the OM 2 on 01/26/2025. Previous echocardiogram has shown systolic function estimated at 40%. Previous history of possible pericarditis treated with colchicine. No associated fever or chills. No complaints of shortness of breath. EKG performed on admission revealed normal sinus rhythm with heart rate of 67 per minute and no acute ST or T-wave changes. No suggestion of pericarditis. Admitting blood pressure was 139/94. Heart rate was 79 per minute with regular rhythm and patient was afebrile. Admitting laboratory data revealed WBC count 6.3, hemoglobin 14.1, platelets are normal. Sodium 135, potassium is 4.0, BUN is 14, creatinine is 1.0. LFTs are normal. ProBNP was 72. Admitting troponin was 0.0120. Subsequent troponin was 0.129. Overall trend is flat without suggestion for acute coronary syndrome. Subjective; Patient was examined at the bedside. Patient is awake alert and appears comfortable without shortness of breath or chest pain. Nuclear stress test yesterday showed a small apical fixed defect in ejection fraction 47% without any reversible defects. Later yesterday patient had an episode for transient blindness in the left eye which lasted for 10-15 minutes. Patient had a CT scan of the brain as well as CT angiogram and neurology consult. Patient had episode of transient blindness in the left eye on 02/08/2025. CT scan of the brain and CT angiogram were all negative. Transesophageal echocardiogram was performed today which was negative for intracardiac thrombi or PFO per Dr. Barroso. Patient has no significant chest pain at this time. Colchicine has been decreased to 0.6 mg. Review of Systems Review of Systems: Twelve point review of system was completed. Pertinent positive and negative findings per HPI. Cardiac negative for chest pain, shortness of breath . Pulmonary negative for shortness of breath, cough or hemoptysis. Neurovascular positive for TIA symptom yesterday with transient blindness in the left eye it resolved completely. Gastrointestinal negative. Exam Narrative: Patient was examined at the bedside. Patient is awake alert appears comfortable without shortness of breath. Oriented x3. Well built and well nourished. Mildly obese with BMI of 30.3. Head and neck examination is unremarkable. Head is atraumatic. Sclerae is nonicteric. ENT examination is negative. Neck is supple. There is no JVD or carotid bruit. Thyroid is not enlarged. There is no cervical lymphadenopathy. Lungs are clear to auscultation percussion. There is no wheezing or crepitation. Heart sounds reveal normal S1-S2. Rhythm is regular. There is no significant murmurs. There is no S3 or S4. There is no pericardial rub. Abdomen is soft nontender. There is no hepatosplenomegaly. Bowel sounds are present. Extremities revealed no pedal edema. Neurological examination is intact. Psych is intact Skin and musculoskeletal negative Objective Data Vital Signs Vital Signs: Vital Signs - 24 hr 02/08/25 12:00 02/08/25 12:00 02/08/25 12:00 Temperature 36.6 C Pulse Rate 82 82 67 Respiratory Rate 16 16 Blood Pressure 121/73 Pulse Oximetry 100 100 Oxygen Delivery Room Air Oxygen Flow Rate 02/08/25 14:00 02/08/25 16:00 02/08/25 16:00 Temperature 36.7 C Pulse Rate 70 76 76 Respiratory Rate 20 20 Blood Pressure 131/86 Pulse Oximetry 96 96 Oxygen Delivery Room Air Oxygen Flow Rate 02/08/25 16:00 02/08/25 18:00 02/08/25 20:00 Temperature Pulse Rate 88 64 Respiratory Rate Blood Pressure Pulse Oximetry Oxygen Delivery Room Air Oxygen Flow Rate 02/08/25 20:00 02/08/25 20:22 02/08/25 22:00 Temperature 36.6 C Pulse Rate 67 65 61 Respiratory Rate 16 Blood Pressure 132/81 Pulse Oximetry 100 Oxygen Delivery Oxygen Flow Rate 02/08/25 23:29 02/09/25 00:00 02/09/25 00:00 Temperature 36.4 C Pulse Rate 65 51 L Respiratory Rate 16 Blood Pressure 135/83 Pulse Oximetry 99 Oxygen Delivery Room Air Oxygen Flow Rate 02/09/25 02:00 02/09/25 04:00 02/09/25 04:00 Temperature Pulse Rate 59 L 66 Respiratory Rate Blood Pressure Pulse Oximetry Oxygen Delivery Room Air Oxygen Flow Rate 02/09/25 04:17 02/09/25 06:00 02/09/25 08:00 Temperature 36.5 C 36.4 C Pulse Rate 76 64 90 Respiratory Rate 15 16 Blood Pressure 113/72 131/88 Pulse Oximetry 97 100 Oxygen Delivery Oxygen Flow Rate 02/09/25 08:00 02/09/25 08:01 02/09/25 08:15 Temperature Pulse Rate 74 Respiratory Rate 20 17 Blood Pressure Pulse Oximetry 96 96 Oxygen Delivery Room Air Room Air Oxygen Flow Rate 02/09/25 08:20 02/09/25 08:30 02/09/25 08:45 Temperature Pulse Rate 69 61 62 Respiratory Rate 18 19 12 Blood Pressure 132/84 117/81 120/82 Pulse Oximetry 95 93 97 Oxygen Delivery Nasal Cannula Room Air Room Air Oxygen Flow Rate 2 02/09/25 09:00 02/09/25 09:10 02/09/25 10:00 Temperature 36.5 C Pulse Rate 65 62 55 L Respiratory Rate 14 16 Blood Pressure 118/85 123/81 Pulse Oximetry 95 99 Oxygen Delivery Room Air Oxygen Flow Rate Intake/Output Intake/Output: Intake & Output 02/06/25 02/07/25 02/08/25 02/09/25 23:59 23:59 23:59 23:59 Intake Total 585.5 1760 1770 550 Output Total 1002 300 Balance 585.5 308 4100 550 Meds/Results Medications: Active Medications Generic Name Dose Route Start Last Admin Trade Name Freq PRN Reason Stop Dose Admin Acetaminophen 650 mg 02/06/25 00:07 02/06/25 14:44 Acetaminophen 325 Mg Tablet PO 650 mg Q4H PRN Administration Mild Pain (1-3) or Fever Aspirin 81 mg 02/06/25 09:00 02/09/25 09:18 Aspirin 81 Mg Enteric Tablet PO 81 mg DAILY [facility] Administration Atorvastatin Calcium 80 mg 02/06/25 09:00 02/09/25 09:17 Atorvastatin 40 Mg Tablet PO 80 mg QAM [facility] Administration Clopidogrel Bisulfate 75 mg 02/06/25 09:00 02/09/25 09:18 Clopidogrel Bisulfate 75 Mg Tablet PO 75 mg DAILY [facility] Administration Colchicine 0.6 mg 02/06/25 11:45 02/09/25 09:17 Colchicine 0.6 Mg Tablet PO 0.6 mg Q12HR [facility] Administration Enoxaparin Sodium 100 mg 02/08/25 21:00 02/09/25 09:19 Enoxaparin 100 Mg/Ml Syringe SUB-Q Not Given Q12H BREE Melatonin 5 mg 02/08/25 23:30 02/08/25 23:32 Melatonin 5 Mg Tablet PO 5 mg HS [facility]REE Administration Morphine Sulfate 2 mg 02/06/25 03:44 02/07/25 00:47 Morphine Sulfate (*Crx) 4 Mg/Ml Inj IV PUSH 2 mg Q4H PRN Administration Pain Rated 7-10 Ondansetron HCl 4 mg 02/06/25 00:07 Ondansetron Inj 4 Mg/2 Ml Vial IV PUSH Q4H PRN Nausea Pantoprazole Sodium 40 mg 02/06/25 09:00 02/09/25 09:18 Pantoprazole 40 Mg Tablet PO 40 mg Q12HR BREE Administration Radiology Results: ITS Impressions Chest X-Ray 02/06/25 06:09 IMPRESSION: 1. No acute cardiopulmonary findings. Chest CTA 02/06/25 13:08 IMPRESSION: 1. No PE or other acute cardiopulmonary findings. Lexiscan Stress Test 02/07/25 10:16 IMPRESSION: 1. Small focus of mild decreased activity at the apical lateral segment on the non gated post stress imaging which changes slightly in position on the post stress imaging obtained in the prone position and which appears to normalize on the gated post stress imaging which would favor artifact over ischemia. No other definitive myocardial perfusion defects at rest and during stress to suggest ischemia or infarct.. 2. Borderline left ventricular ejection fraction measuring 46%. Head CT 02/07/25 15:11 IMPRESSION: 1. Normal brain. No acute intracranial process. Head/Neck CTA 02/07/25 15:26 IMPRESSION: 1. No evident atherosclerotic plaque with 0% stenosis of the right and left carotid bulbs relative to normal distal artery lumen diameter (NASCET criteria). 2. Unremarkable cerebral CT angiogram with no evident thrombosis, hemodynamically significant stenosis or aneurysm. Brain MRI 02/08/25 10:07 IMPRESSION: 1. Normal brain. Labs Labs: Laboratory Results - last 24 hr 02/09/25 03:56 WBC 6.5 RBC 4.95 Hgb 14.4 Hct 41.5 L MCV 83.8 MCH 29.1 MCHC 34.7 RDW 12.0 Plt Count 309 MPV 9.1 Sodium 136 L Potassium 3.8 Chloride 104 Carbon Dioxide 25 Anion Gap 7 BUN 12 Creatinine 1.05 Estim Creat Clear Calc 91 Estimated GFR > 60 Glucose 102 Calcium 8.5 Total Bilirubin 0.7 AST 156 H ALT 217 H Alkaline Phosphatase 65 Total Protein 6.2 L Albumin 3.6
--- NOTE | 2025-02-09 12:43 | PM.DS ---
DS: Admitting Diagnosis Discharge Date 02/09/2025 Admitting Diagnosis NSTEMI DS: Discharge Diagnosis Discharge Diagnosis (1) Non-ST elevation NC (NSTEMI): Code(s): I21.4 - Non-ST elevation (NSTEMI) myocardial infarction Status: Acute Assessment and Plan: -patient's troponin are flat. Initial troponin is 0.121 with 3 hour repeat of 0.120. Patient has recent cardiac with PCI about 2 weeks ago -CTA pulmonary no acute cardiopulmonary changes -echo left ventricular ejection fraction 45-50% Lexiscan showed small fixed apical defect and reduced ejection fraction in the range of 47%. Continue Aspirin, Lipitor and Plavix Cardiology following SAKINA: unremarkable for PFO or other defect As per cardiology med surge to Eliquis, Plavix and aspirin as long as tolerated. Aspirin could be discontinued after 4 weeks of angioplasty. (2) Hypertension: Code(s): I10 - Essential (primary) hypertension Status: Acute Assessment and Plan: -his highest blood pressure was 147/98 in the emergency room. His blood pressure is now 109/77 after morphine. -may consider metoprolol. (3) Hyperlipidemia: Code(s): E78.5 - Hyperlipidemia, unspecified Status: Acute Assessment and Plan: -continue with atorvastatin. -he stated that his cholesterol has only been mildly elevated and his LDLs had been elevated as well. (4) Elevated liver enzymes: Code(s): R74.8 - Abnormal levels of other serum enzymes Status: Acute Plan DVT prophylaxis on Sq heparin DS: Summary Hospital Course Hospital Course: This is a 43-year-old male patient who stated that he had a stent placed in the LAD on 01/24/2024 in [facility]. He stated he was told that at that time he had no heart damage. Patient continued to have chest pain ever since the 1st catheterization. He stated that he went to [facility] and had a 2nd stent placed to the 2 on 01/26/2025. He also stated that he has a past medical history of hypertension but is not on any medication currently. He has been on aspirin, a statin, and Plavix. He denies being on metoprolol. He also stated that he had an echo performed at [facility] with an EF of 41%. The patient stated that he has some discomfort with deep inspiration. Patient stated it he was on colchicine at 1.4 the possibility of pericarditis. However this did not help him. He has no edema to his lower extremities or any pain in this leg. Patient stated his pain is to the left side of his chest between the chest bone and his nipple line. He has no reproducible chest wall pain. His heart rate is 56 and his blood pressure is 109/77. He is afebrile. His platelet count is 386. Sodium slightly low at 135. Troponin initially was 0.121 with the 3 hour repeat of 0.120. Patient is rating his pain 7/10. His total heart score was 5 in the emergency room. EKG was interpreted per ED provider Normal sinus rhythm at a rate of 76 beats per minute. WI interval 173. QRS 105. QT/QTC 471/419. Poor R-wave progression across the precordial leads. No T-wave inversions. Left axis deviation. Incomplete RBBB given QRS less [id number]; RSR' M-shaped pattern in V1-V3; to a lesser extent wide, slurred S wave in lateral leads (I, aVL, barely present in V5-6). The patient was started on heparin drip. He was given Tylenol and Zofran in the emergency room. He was also given aspirin and morphine. The patient stated that he has more pain when he lays flat but when he sits up his chest wall feels better. Chest x-ray read per ED provider was read as negative for acute intrathoracic process. CTA of the chest also negative for PE. NST was conducted, showing small fixed apical defect and ejection fraction of 47%. Hospitalization was complicated by onset of transient of blindness in the right eye, as well as numbness in the right arm and face, all of which completely improved within 10-30 minutes, without sequela or recurrence. CT Head and CTA Head/Neck conducted, all normal. MRI Brain also normal. Patient went for SAKINA to rule out patent foramen ovale or other defect that may have contributed to neurological symptoms but it was normal. Cardiology recommendation is to discharge on colchicine 0.6mg qd, apixaban, clopidogrel, and aspirin (for 30 days). Recommended neurology input which can be done as outpatient. Patient also would benefit from 30 day event monitor from outpatient follow up at recommendation of cardiology service. Other complicating factor was slight increase in AST and ALT during hospitalization. In interest of having patient follow up for cardiac issues, outpatient follow up has been recommended with GI; orders for CMP and abdominal ultrasound to be generated. Status at Discharge Cognitive/behavioral status at discharge: stable Time Spent with Patient Time attestation: Total time spent providing and/or coordinating discharge services: Exam Const: General: cooperative, healthy appearing, no acute distress, well developed, awake, Physically active, average body habitus and well nourished Nutritional Appearance: average body habitus and well nourished Orientation/consciousness: oriented to person, oriented to place, oriented to time and patient oriented x3 Limitations: no limitations HENMT: Head: normal to inspection, No palpable skull fracture present, normocephalic, atraumatic and abrasion Ears: hearing grossly normal bilaterally Eyes: General: appearance normal, both eyes and all related structures Alignment and Position: alignment normal Periorbital: periorbital findings normal Eyelids: eyelids normal Pupils: Equal, round and reactive pupils present Neck: Neck: normal visual inspection and full ROM Chest: Chest palpation & inspection: normal inspection of the chest Resp: Effort & Inspection: normal respiratory effort Auscultation: clear to auscultation bilaterally Cardio: Palpation: normal PMI Rate: regular rate Rhythm: regular rhythm Heart sounds: S1 normal heart sound present and S2 normal heart sound present Peripheral pulses: Peripheral pulses 2+ throughout GI: Inspection: normal to inspection Auscultation: normal bowel sounds Rectal Exam: deferred : General: Yes no CVA tenderness Back/Spine/Pelvis: Back: no CVA tenderness Skin: General skin exam: normal color Lesions: no lesions Rashes: no rashes Trauma: no lacerations or abrasions Wounds: no wounds Hair: normal Nails: normal Neuro: General: oriented to person, oriented to place, oriented to time and patient oriented x3 Cranial nerves: Yes Equal, round and reactive pupils present and Yes Normal hearing present Cognition (Neuro): normal cognition Speech: normal speech Gait exam (Neuro): Normal gait present Motor exam (neuro): 5/5 motor strength present throughout Sensory Exam: normal sensation Extrem: General: normal to inspection Right upper extremity: normal to inspection and shoulder/upper arm Left upper extremity: normal to inspection and shoulder/upper arm Right lower extremity: normal to inspection Left lower extremity: normal to inspection Psych: Appearance: grossly normal Mental Status: mental status grossly normal Speech and movement: Normal speech and movement present Affect: normal affect Attitude: cooperative Thought process: Normal thought process present Insight: Good insight present (Psych) Judgement: Good judgement present (Psych) DS: Data Data Completed and Pending Labs on day of discharge: Labs from last 24 hours 02/09/25 03:56 WBC 6.5 RBC 4.95 Hgb 14.4 Hct 41.5 L MCV 83.8 MCH 29.1 MCHC 34.7 RDW 12.0 Plt Count 309 MPV 9.1 Sodium 136 L Potassium 3.8 Chloride 104 Carbon Dioxide 25 Anion Gap 7 BUN 12 Creatinine 1.05 Estim Creat Clear Calc 91 Estimated GFR > 60 Glucose 102 Calcium 8.5 Total Bilirubin 0.7 AST 156 H ALT 217 H Alkaline Phosphatase 65 Total Protein 6.2 L Albumin 3.6 Discharge Plan Discharge Consulting providers: David Martin; Wilson Reyna Discharging Clinician: Kahlil Membreno Oca Patient Disposition: Home Activity: as tolerated Diet: heart healthy Patient Instructions: Antibiotic Form, Clopidogrel (By mouth), Chest Pain (GEN), Transesophageal Echocardiogram (DC) Patient Language: Ethiopian Stand Alone Forms: General Discharge Information Follow-up/Referrals: Neurology [Provider Group, Neurology] Referral Note: TIA symptoms during NSTEMI that rapidly resolved without recurrence. Imaging was negative. Discharge Medications: No Action pantoprazole 40 mg tablet,delayed release (DR/EC) 40 mg PO Q12H aspirin 81 mg tablet,delayed release (DR/EC) 81 mg PO DAILY clopidogrel 75 mg tablet 75 mg PO DAILY atorvastatin 80 mg tablet 80 mg PO QAM colchicine 0.6 mg tablet 0.6 mg PO .q12hr Other Ambulatory Orders: US abdomen limited (Routine) Timeframe: 1 Week Location: Determined by Patient Ordered By: Kahlil cobian Oca Comprehensive Metabolic Panel (Routine) Timeframe: 1 Week Location: Determined by Patient Ordered By: Kahlil cobian Oca Date of admission: 02/06/25 00:07 Primary Care Provider: Vika,Kt Mittal Admitting Provider: Trinity Menon Attending physician on admission: Trinity Menon Condition: Stable Quality VTE Prophylaxis VTE prophylaxis: pharmacologic ordered
== END 2025-02-09 14:49 | disposition home or self-care (01) ==
LOC: ANHED 02-06 00:40 → ANHIMU 02-06 03:16
PROVIDERS: General Practice; Internal Medicine; Internal Medicine Adolescent Medicine; Nurse Practitioner; Specialist; Admitting Provider Internal Medicine; Emergency Provider Student in an Organized Health Care Education/Training Program; PCP Family Medicine; Visit Provider Student in an Organized Health Care Education/Training Program
PROC: (CPT 93312; principal; 2025-02-09 11:30)
DX: R07.89 Other chest pain (principal); G45.9 Transient cerebral ischemic attack, unspecified; H53.132 Sudden visual loss, left eye; R20.0 Anesthesia of skin; E87.1 Hypo-osmolality and hyponatremia; D75.839 Thrombocytosis, unspecified; I45.10 Unspecified right bundle-branch block; I25.10 Atherosclerotic heart disease of native coronary artery without angina pectoris; R74.8 Abnormal levels of other serum enzymes; I10 Essential (primary) hypertension; E78.5 Hyperlipidemia, unspecified; E11.9 Type 2 diabetes mellitus without complications; I25.2 Old myocardial infarction; Z95.5 Presence of coronary angioplasty implant and graft; Z80.1 Family history of malignant neoplasm of trachea, bronchus and lung; Z80.42 Family history of malignant neoplasm of prostate; Z87.891 Personal history of nicotine dependence; Z20.822 Contact with and (suspected) exposure to COVID-19; Z79.82 Long term (current) use of aspirin; Z79.02 Long term (current) use of antithrombotics/antiplatelets; E66.9 Obesity, unspecified; Z68.30 Body mass index [BMI] 30.0-30.9, adult
CPT/HCPCS: 36415; 70450; 70496; 70498; 70551; 71046; 71275; 78452; 80048; 80053; 80061; 82948; 83690; 83735; 83880; 84443; 84484; 85025; 85027; 85380; 85610; 85652; 85730; 86140; 87637; 93005; 93017; 93312; 93320; 93325; 96372; 96374; 96375; 96376; 99285; A9270; A9502; C8929; G0378; J1644; J1650; J2250; J2270; J2704; J2785; J3010; J7040; Q9957; Q9967